=== PATIENT | female | born 1970 | race Caucasian/White ===

== ENCOUNTER 2016-11-27 00:05 | Inpatient (IN) | payer OTHER ==
[2016-11-27] VITALS (24 sets, daily range): BP systolic 90–160; BP diastolic 56–99; PULSE 70–116; RESP 14–20; TEMP 92.5–100.8; O2SAT 93–100
[~2016-11-27] VITALS: Ht 202.4 cm; Wt 77.1 kg
[~2016-11-27 00:05] MED LIST: DIAZ5 PO; LORC10TA PO
[2016-11-27] MEDS ORDERED: ceFAZolin 2 GM PREMIX 50 ML ONE (00:08)
[2016-11-27 00:35] LABS: AUTOMATED NEUTROPHIL # 3.7 TH/MM3 (1.8-7.7); BASOPHIL % 0.4 % (0.0-2.0); EOSINOPHIL # 0.1 TH/MM3 (0-0.4); HEMATOCRIT 29.9 % (35.0-46.0); HEMO FLAGS DIFF FINAL; LYMPH % 49.6 % (9.0-44.0); LYMPHOCYTE # 4.1 TH/MM3 (1.0-4.8); MEAN CELL VOLUME 91.7 FL (80.0-100.0); MEAN CORPUSCULAR HGB CONC 33.8 % (32.0-36.0); MONO % 5.4 % (0.0-8.0); NEUT % 43.6 % (16.0-70.0); PLATELET COUNT 174 TH/MM3 (150-450); RED BLOOD COUNT 3.26 MIL/MM3 (4.00-5.30); RED CELL DISTRIBUTION WIDTH 13.5 % (11.6-17.2); WHITE BLOOD COUNT 8.4 TH/MM3 (4.0-11.0)
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
[2016-11-27 00:39] LABS: I-STAT POTASSIUM 2.9 MMOL/L (3.5-4.9)
[2016-11-27 00:43] LABS: APTT (PATIENT) 24.2 SEC (24.3-30.1)
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
[2016-11-27] MEDS ORDERED: ETOMIDATE 20 MG/10 ML VIAL ONE (01:07)
[2016-11-27 01:22] LABS: BLOOD GAS BASE EXCESS -18.3 mmol/L (-2-2); BLOOD GAS CARBOXYHEMOGLOBIN 2.2 % (0-4); BLOOD GAS HCO3 10 mmol/L (22-26); BLOOD GAS METHEMOGLOBIN 1.5 % (0-2); BLOOD GAS O2 HGB SATURATION 96 % (90-100); BLOOD GAS OXYGEN CONTENT 9.4 Vol % (12.0-20.0); BLOOD GAS PCO2 42 mmHg (38-42); BLOOD GAS PO2 372 mmHg (61-120); BLOOD GAS TOTAL HGB 6.3 G/DL (12.0-16.0); CRITICAL VALUE YES; DRAW SITE ART LINE; OXYGEN DEVICE VENTILATOR; STAT YES; TEMP CORR TO 98.6; VENT SETTINGS O.R.
[2016-11-27 01:38] LABS: BLOOD GAS BASE EXCESS -0.6 mmol/L (-2-2); BLOOD GAS CARBOXYHEMOGLOBIN 2.3 % (0-4); BLOOD GAS HCO3 25 mmol/L (22-26); BLOOD GAS METHEMOGLOBIN 1.2 % (0-2); BLOOD GAS O2 HGB SATURATION 97 % (90-100); BLOOD GAS OXYGEN CONTENT 9.2 Vol % (12.0-20.0); BLOOD GAS PCO2 48 mmHg (38-42); BLOOD GAS PO2 440 mmHg (61-120); BLOOD GAS TOTAL HGB 5.9 G/DL (12.0-16.0); CRITICAL VALUE YES; DRAW SITE ART LINE; OXYGEN DEVICE VENTILATOR; STAT YES; TEMP CORR TO 98.6; VENT SETTINGS O.R.
[2016-11-27 01:38] LABS: REVIEW FLAG FINAL
[2016-11-27 01:39] LABS: HEMATOCRIT 17.5 % (35.0-46.0)
[2016-11-27 01:52] LABS: INTERNATIONAL NORMALIZED RATIO 1.4 RATIO; PROTHROMBIN TIME - PATIENT 15.9 SEC (9.8-11.6)
[2016-11-27 01:56] LABS: APTT (PATIENT) 117.4 SEC (24.3-30.1)
[2016-11-27] MEDS ORDERED: MIDAZOLAM HCL 2 MG/2 ML VIAL ONE (02:12)
[2016-11-27] MEDS ORDERED: fentaNYL CITRATE 250 MCG/5 ML AMP ONE (02:12)
[2016-11-27] MEDS ORDERED: SODIUM CHLORIDE 0.9% FLUSH 5 ML FLUSH IVF PRN (02:15)
[2016-11-27] MEDS ORDERED: Post-op Orders (for Pharmacy) MISC XX ONE (02:15)
[2016-11-27] MEDS ORDERED: NALOXONE HCL 0.4 MG/ML AMP IV PRN (02:15)
[2016-11-27] MEDS ORDERED: PANTOPRAZOLE SOD 40 MG DELAYED RELEASE TAB PO SCH (02:15)
--- NOTE | 2016-11-27 02:36 | RADRPT ---
EXAM DATE/TIME: 11/27/2016 02:14 [facility] COMPARISON: No previous studies available for comparison. INDICATIONS : E-T tube placement. MEDICAL HISTORY : None. SURGICAL HISTORY : None. ENCOUNTER: Subsequent ACUITY: 1 day PAIN SCORE: Non-responsive. LOCATION: Bilateral chest FINDINGS: A single view of the chest demonstrates the lungs to be symmetrically aerated without evidence of mas s, infiltrate or effusion. Endotracheal tube with tip 3 cm above the tova. The cardiomediastinal co ntours are unremarkable. Osseous structures are intact. CONCLUSION: 1. Adequate placement of endotracheal tube. Lopez White MD on November 27, 2016 at 2:32 Board Certified Radiologist. This report was verified electronically.
[2016-11-27 02:59] LABS: AUTOMATED NEUTROPHIL # 7.7 TH/MM3 (1.8-7.7); BASOPHIL % 0.1 % (0.0-2.0); EOSINOPHIL % 0.5 % (0.0-4.0); HEMATOCRIT 35.7 % (35.0-46.0); LYMPH % 9.4 % (9.0-44.0); LYMPHOCYTE # 0.8 TH/MM3 (1.0-4.8); MEAN CORPUSCULAR HEMOGLOBIN 30.5 PG (27.0-34.0); MEAN CORPUSCULAR HGB CONC 35.9 % (32.0-36.0); MONO % 2.9 % (0.0-8.0); NEUT % 87.1 % (16.0-70.0); PLATELET COUNT 51 TH/MM3 (150-450); RED CELL DISTRIBUTION WIDTH 13.6 % (11.6-17.2); WHITE BLOOD COUNT 8.8 TH/MM3 (4.0-11.0)
[2016-11-27 03:08] LABS: APTT (PATIENT) 36.6 SEC (24.3-30.1); INTERNATIONAL NORMALIZED RATIO 1.1 RATIO; PROTHROMBIN TIME - PATIENT 12.1 SEC (9.8-11.6)
[2016-11-27] MEDS ORDERED: fentaNYL DRIP 250 ML ONE (03:14)
[2016-11-27 03:20] LABS: BICARBONATE 20.7 MEQ/L (21.0-32.0); CALCIUM-PROTEIN CORRECTED 8.1 MG/DL (8.5-10.1); POTASSIUM 5.9 MEQ/L (3.5-5.1); TOTAL BILIRUBIN ADULT 0.5 MG/DL (0.2-1.0)
[2016-11-27 03:24] LABS: BLOOD GAS BASE EXCESS -6.8 mmol/L (-2-2); BLOOD GAS CARBOXYHEMOGLOBIN 1.4 % (0-4); BLOOD GAS HCO3 18 mmol/L (22-26); BLOOD GAS METHEMOGLOBIN 0.9 % (0-2); BLOOD GAS O2 HGB SATURATION 98 % (90-100); BLOOD GAS OXYGEN CONTENT 16.9 Vol % (12.0-20.0); BLOOD GAS PCO2 31 mmHg (38-42); BLOOD GAS PO2 390 mmHg (61-120); BLOOD GAS TOTAL HGB 11.6 G/DL (12.0-16.0); CRITICAL VALUE NO; DRAW SITE ART LINE; FIO2 100 %; NUMBER OF ARTERIAL PUNCTURES 0; OXYGEN DEVICE VENTILATOR; STAT YES; TEMP CORR TO 98.6; ULNAR PULSE PRESENT
[2016-11-27] MEDS: PIPERACIL-TAZO 3.375 GM PREMIX 50 ML IV SCH ×3 (03:26→19:51)
[2016-11-27 03:27] LABS: HEMO FLAGS AUTO DIFF
[2016-11-27 03:28] LABS: SCAN/DIFF AUTO DIFF CONFIRMED
[2016-11-27 04:09] LABS: MEAN CORPUSCULAR HGB CONC 36.4 % (32.0-36.0)
[2016-11-27] MEDS: SODIUM CHLOR 0.9% 1000 ML INJ 1,000 ML IV SCH ×4 (05:14→19:52)
[2016-11-27] MEDS: fentaNYL 2,500 MCG/NS 250 ML IV SCH ×2 (05:15→21:37)
[2016-11-27] MEDS: PROPOFOL 1000 MG/100 ML IV SCH ×5 (05:15→21:37)
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
[2016-11-27] MEDS ORDERED: niCARdipine 25 MG/NS 250 ML Vial2Bag or IV room IV SCH ×2 (05:30)
[2016-11-27] MEDS ORDERED: SODIUM CHLOR 0.9% 250 ML INJ 250 ML ONE (05:33)
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
[2016-11-27 05:56] LABS: BLOOD GAS CARBOXYHEMOGLOBIN 1.6 % (0-4); BLOOD GAS HCO3 23 mmol/L (22-26); BLOOD GAS O2 HGB SATURATION 97 % (90-100); BLOOD GAS OXYGEN CONTENT 15.9 Vol % (12.0-20.0); BLOOD GAS PCO2 26 mmHg (38-42); BLOOD GAS PO2 225 mmHg (61-120); BLOOD GAS TOTAL HGB 11.3 G/DL (12.0-16.0); TEMP CORR TO 98.6
[2016-11-27 05:58] LABS: CRITICAL VALUE YES; OXYGEN DEVICE VENTILATOR
[2016-11-27 05:59] LABS: DRAW SITE ART LINE; FIO2 80 %; NUMBER OF ARTERIAL PUNCTURES 0; STAT NO; ULNAR PULSE PRESENT
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
[2016-11-27 07:01] LABS: AUTOMATED NEUTROPHIL # 4.7 TH/MM3 (1.8-7.7); BASOPHIL % 0.1 % (0.0-2.0); EOSINOPHIL % 0.3 % (0.0-4.0); HEMATOCRIT 31.6 % (35.0-46.0); LYMPH % 21.7 % (9.0-44.0); LYMPHOCYTE # 1.4 TH/MM3 (1.0-4.8); MEAN CELL VOLUME 83.7 FL (80.0-100.0); MEAN CORPUSCULAR HEMOGLOBIN 30.5 PG (27.0-34.0); NEUT % 72.9 % (16.0-70.0); PLATELET COUNT 100 TH/MM3 (150-450); RED BLOOD COUNT 3.78 MIL/MM3 (4.00-5.30); RED CELL DISTRIBUTION WIDTH 14.2 % (11.6-17.2); WHITE BLOOD COUNT 6.4 TH/MM3 (4.0-11.0)
[2016-11-27 07:02] LABS: HEMO FLAGS AUTO DIFF
[2016-11-27 07:09] LABS: APTT (PATIENT) 27.8 SEC (24.3-30.1); INTERNATIONAL NORMALIZED RATIO 1.1 RATIO; PROTHROMBIN TIME - PATIENT 11.7 SEC (9.8-11.6)
[2016-11-27 07:36] LABS: CALCIUM-PROTEIN CORRECTED 8.1 MG/DL (8.5-10.1)
[2016-11-27 07:44] LABS: POTASSIUM 2.7 MEQ/L (3.5-5.1)
[2016-11-27] MEDS ORDERED: SODIUM CHLORIDE 0.9% FLUSH 5 ML FLUSH IV FLUSH PRN (07:45)
[2016-11-27] MEDS ORDERED: DEXTROSE 50% IN WATER 50 ML VIAL(D50) IV PUSH PRN (07:45)
[2016-11-27] MEDS ORDERED: MISCELLANEOUS NURSING INFORMATION XX SCH (07:45)
[2016-11-27] MEDS ORDERED: GLUCAGON 1 MG/ML VIAL OTHER PRN (07:45)
[2016-11-27] MEDS ORDERED: CHLORHEXIDINE GLUCONATE 2 % 1 PACK (2 CLOTHS) TOP PRN (07:45)
[2016-11-27] MEDS ORDERED: PANTOPRAZOLE SODIUM 40 MG VIAL IV PUSH SCH (08:00)
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
[2016-11-27 08:13] LABS: BLOOD GAS BASE EXCESS 4.3 mmol/L (-2-2); BLOOD GAS CARBOXYHEMOGLOBIN 1.7 % (0-4); BLOOD GAS HCO3 28 mmol/L (22-26); BLOOD GAS METHEMOGLOBIN 1.2 % (0-2); BLOOD GAS O2 HGB SATURATION 94 % (90-100); BLOOD GAS OXYGEN CONTENT 14.8 Vol % (12.0-20.0); BLOOD GAS PCO2 42 mmHg (38-42); BLOOD GAS PO2 81 mmHg (61-120); BLOOD GAS TOTAL HGB 11.2 G/DL (12.0-16.0); TEMP CORR TO 98.6
[2016-11-27 08:14] LABS: CRITICAL VALUE NO; DRAW SITE LT RADIAL; FIO2 40 %; OXYGEN DEVICE VENTILATOR; STAT NO; VENT SETTINGS PRVC550/14/PEEP5/1.0
[2016-11-27] MEDS: RESP: ALBUTEROL 2.5 MG/IPRATROPIUM 0.5 MG NEB (SCH) INH ×3 (08:19→20:12)
[2016-11-27 08:37] LABS: BANDS 20 % (0-6); EOSINOPHILS 1 % (0-4); NEUTROPHIL # MANUAL DIFF 4.7 TH/MM3 (1.8-7.7); PLATELET ESTIMATE SMEAR LOW (NORMAL); PLATELET MORPHOLOGY NORMAL (NORMAL); POLYS (SEG NEUTROPHILS) 53 % (16-70); SCAN/DIFF FINAL DIFF MANUAL; WBC DIFF SAMPLE 100
[2016-11-27] MEDS ORDERED: POTASSIUM PHOSPHATE MONOBASIC 500 MG TAB PO/TUBE PRN (08:45)
[2016-11-27] MEDS ORDERED: POTASSIUM CL 40 MEQ/30 ML LIQ UDC PO/TUBE PRN (08:45)
[2016-11-27] MEDS ORDERED: SODIUM PHOSPHATE INJ 30 MMOL in SODIUM CHLOR 0.9% 250 ML INJ 240 ML IV PRN (08:45)
[2016-11-27] MEDS ORDERED: POTASSIUM PHOSPHATE INJ 30 MMOL in SODIUM CHLOR 0.9% 250 ML INJ 250 ML IV PRN (08:45)
[2016-11-27] MEDS ORDERED: MAGNESIUM SULFATE INJ 4 GM in SODIUM CHLORIDE 0.9% INJ 92 ML IV PRN (08:45)
[2016-11-27] MEDS ORDERED: MAGNESIUM OXIDE 400 MG TAB PO PRN (08:45)
[2016-11-27] MEDS ORDERED: POTASSIUM PHOSPHATE MONOBASIC 500 MG TAB PO PRN (08:45)
[2016-11-27] MEDS ORDERED: SODIUM CHLORIDE 0.9% FLUSH 5 ML FLUSH IVF SCH (09:00)
[2016-11-27] MEDS: POTASSIUM CHLOR 40 MEQ PREMIX 100 ML IV PRN ×3 (09:34→19:52)
[2016-11-27] MEDS: PANTOPRAZOLE SODIUM 40 MG VIAL IV SCH (09:37)
[2016-11-27] MEDS: SODIUM CHLORIDE 0.9% FLUSH 5 ML FLUSH IV FLUSH SCH ×2 (09:38→19:52)
[2016-11-27 09:45] LABS: MEAN CORPUSCULAR HGB CONC 36.4 % (32.0-36.0)
[2016-11-27 09:46] LABS: MAGNESIUM 1.5 MG/DL (1.5-2.5)
[2016-11-27] MEDS: MULTIVITAMIN INJ 10 ML, THIAMINE INJ 100 MG, FOLIC ACID INJ 1 MG in SODIUM CHLORID 0.9%... IV SCH (10:53)
[2016-11-27] MEDS: MAGNESIUM SULFATE INJ 2 GM in SODIUM CHLORIDE 0.9% INJ 96 ML IV PRN (10:53)
[2016-11-27] MEDS: ARTIFICIAL TEARS OPTH SOLN 15 ML BTL EACH EYE SCH ×3 (10:54→17:06)
[2016-11-27] MEDS ORDERED: EPINEPHrine HCL (1:10,000) 1 MG/10 ML SYRINGE ONE (11:27)
[2016-11-27] MEDS ORDERED: LIDOCAINE HCL 2% 100 MG/5 ML SYRINGE ONE (11:27)
[2016-11-27] MEDS ORDERED: ATROPINE SULFATE 1 MG/10 ML SYRINGE ONE (11:28)
[2016-11-27] MEDS: INSULIN NovoLIN REGULAR SUPPLEMENTAL SCALE SQ SCH ×2 (12:00→18:00)
[2016-11-27] MEDS ORDERED: IOHEXOL 350 MG/ML 10 ML VIAL (for RAD DIAG) IV ONE (12:31)
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
[2016-11-27 13:03] LABS: HEMATOCRIT 31.3 % (35.0-46.0); MEAN CELL VOLUME 83.3 FL (80.0-100.0); MEAN CORPUSCULAR HEMOGLOBIN 30.4 PG (27.0-34.0); PLATELET COUNT 86 TH/MM3 (150-450); RED BLOOD COUNT 3.75 MIL/MM3 (4.00-5.30); RED CELL DISTRIBUTION WIDTH 14.4 % (11.6-17.2); WHITE BLOOD COUNT 5.5 TH/MM3 (4.0-11.0)
[2016-11-27 13:05] LABS: REVIEW FLAG FINAL
[2016-11-27 13:08] LABS: APTT (PATIENT) 29.2 SEC (24.3-30.1); INTERNATIONAL NORMALIZED RATIO 1.1 RATIO
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
[2016-11-27 13:39] LABS: BICARBONATE 28.9 MEQ/L (21.0-32.0); MAGNESIUM 1.8 MG/DL (1.5-2.5); POTASSIUM 3.6 MEQ/L (3.5-5.1)
[2016-11-27 14:02] LABS: CALCIUM-PROTEIN CORRECTED 7.3 MG/DL (8.5-10.1)
[2016-11-27] MEDS ORDERED: ALBUMIN HUMAN 5% 25 GM/500 ML BOTTLE IV ONE ×2 (14:45→21:30)
[2016-11-27] MEDS ORDERED: NOREPINEPHRINE-DEXTROSE DRIP 250 ML IV ONE (15:37)
[2016-11-27] MEDS ORDERED: TERBUTALINE INJ 1 MG/ML AMP SQ PRN ×2 (15:45→17:45)
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
[2016-11-27] MEDS ORDERED: SODIUM CHLOR 0.9% 1000 ML INJ 1,000 ML IV ONE ×2 (16:45)
[2016-11-27] MEDS ORDERED: CALCIUM GLUCONATE INJ 2 GM in DEXTROSE 5% IN WATER 100ML INJ 100 ML IV ONE ×2 (17:00)
[2016-11-27] MEDS: NOREPINEPHRINE-DEXTROSE DRIP 250 ML IV SCH ×2 (17:25→21:59)
[2016-11-27] MEDS ORDERED: PHENYLEPHRINE HCL 10 MG/ML VIAL ONE (17:35)
[2016-11-27 17:42] LABS: MEAN CELL VOLUME 83.7 FL (80.0-100.0); MEAN CORPUSCULAR HEMOGLOBIN 29.6 PG (27.0-34.0); MEAN CORPUSCULAR HGB CONC 35.4 % (32.0-36.0); PLATELET COUNT 80 TH/MM3 (150-450); RED BLOOD COUNT 3.58 MIL/MM3 (4.00-5.30); RED CELL DISTRIBUTION WIDTH 14.4 % (11.6-17.2); WHITE BLOOD COUNT 11.4 TH/MM3 (4.0-11.0)
[2016-11-27 17:43] LABS: REVIEW FLAG FINAL
[2016-11-27 18:04] LABS: BLOOD GAS BASE EXCESS -3.8 mmol/L (-2-2); BLOOD GAS CARBOXYHEMOGLOBIN 1.6 % (0-4); BLOOD GAS HCO3 22 mmol/L (22-26); BLOOD GAS METHEMOGLOBIN 1.1 % (0-2); BLOOD GAS O2 HGB SATURATION 91 % (90-100); BLOOD GAS OXYGEN CONTENT 13.6 Vol % (12.0-20.0); BLOOD GAS PCO2 46 mmHg (38-42); BLOOD GAS PO2 78 mmHg (61-120); BLOOD GAS TOTAL HGB 10.5 G/DL (12.0-16.0); TEMP CORR TO 98.6
[2016-11-27 18:05] LABS: CRITICAL VALUE NO; DRAW SITE ART LINE; FIO2 40 %; OXYGEN DEVICE VENTILATOR; STAT NO; VENT SETTINGS PRVC550/14PEEP51.OIT
[2016-11-27 18:22] LABS: BICARBONATE 26.3 MEQ/L (21.0-32.0)
[2016-11-27 18:37] LABS: CALCIUM-PROTEIN CORRECTED 7.6 MG/DL (8.5-10.1)
[2016-11-27 18:40] LABS: POTASSIUM 2.9 MEQ/L (3.5-5.1)
[2016-11-27] MEDS ORDERED: SODIUM BICARBONATE 8.4% INJ 50 MEQ/50 ML SYR ONE (18:49)
[2016-11-27] MEDS ORDERED: SODIUM BICARBONATE 8.4% INJ 50 MEQ/50 ML SYR IV PUSH ONE (20:00)
[2016-11-27] MEDS: PHENYLEPHRINE INJ 40 MG in DEXTROSE 5% IN WATE 500 ML INJ 496 ML IV SCH ×2 (21:36)
[2016-11-28] VITALS (20 sets, daily range): BP systolic 92–116; BP diastolic 52–65; PULSE 88–114; RESP 14–18; TEMP 99.7–100.8; O2SAT 91–100
[2016-11-28] MEDS ORDERED: PHENYLEPHRINE HCL 10 MG/ML VIAL ONE ×3 (01:37→01:38)
[2016-11-28] MEDS: PHENYLEPHRINE INJ 40 MG in DEXTROSE 5% IN WATE 500 ML INJ 496 ML IV SCH ×10 (02:26→23:11)
[2016-11-28] MEDS: RESP: ALBUTEROL 2.5 MG/IPRATROPIUM 0.5 MG NEB (SCH) INH ×4 (03:18→20:35)
[2016-11-28] MEDS: CHLORHEXIDINE GLUCONATE 2 % 1 PACK (2 CLOTHS) TOP SCH (04:00)
[2016-11-28 04:13] LABS: AUTOMATED NEUTROPHIL # 9.9 TH/MM3 (1.8-7.7); BASOPHIL % 0.2 % (0.0-2.0); EOSINOPHIL # 0.1 TH/MM3 (0-0.4); EOSINOPHIL % 0.7 % (0.0-4.0); HEMATOCRIT 30.7 % (35.0-46.0); LYMPH % 17.5 % (9.0-44.0); LYMPHOCYTE # 2.3 TH/MM3 (1.0-4.8); MEAN CELL VOLUME 85.3 FL (80.0-100.0); MEAN CORPUSCULAR HEMOGLOBIN 29.6 PG (27.0-34.0); MEAN CORPUSCULAR HGB CONC 34.8 % (32.0-36.0); MONO % 5.4 % (0.0-8.0); NEUT % 76.2 % (16.0-70.0); PLATELET COUNT 81 TH/MM3 (150-450); WHITE BLOOD COUNT 12.9 TH/MM3 (4.0-11.0)
[2016-11-28 04:15] LABS: HEMO FLAGS AUTO DIFF
[2016-11-28 04:32] LABS: INTERNATIONAL NORMALIZED RATIO 1.2 RATIO; PROTHROMBIN TIME - PATIENT 12.9 SEC (9.8-11.6)
[2016-11-28] MEDS: PIPERACIL-TAZO 3.375 GM PREMIX 50 ML IV SCH ×3 (04:56→20:40)
[2016-11-28] MEDS: PROPOFOL 1000 MG/100 ML IV SCH ×3 (04:57→20:39)
[2016-11-28] MEDS: SODIUM CHLOR 0.9% 1000 ML INJ 1,000 ML IV SCH ×3 (04:57→20:41)
[2016-11-28 04:59] LABS: BICARBONATE 23.1 MEQ/L (21.0-32.0); CALCIUM-PROTEIN CORRECTED 7.9 MG/DL (8.5-10.1); MAGNESIUM 1.4 MG/DL (1.5-2.5); POTASSIUM 4.2 MEQ/L (3.5-5.1); TOTAL BILIRUBIN ADULT 1.4 MG/DL (0.2-1.0)
[2016-11-28 05:00] LABS: BANDS 44 % (0-6); BASOPHILS 1 % (0-2); CORRECTED NUCLEATED RBC 1 /100 WBC (0-0); NEUTROPHIL # MANUAL DIFF 10.3 TH/MM3 (1.8-7.7); POLYS (SEG NEUTROPHILS) 35 % (16-70); PROMYELOCYTES 1 % (0-0); WBC DIFF SAMPLE 100
[2016-11-28 05:01] LABS: OVALOCYTES 1+ (NORMAL); PLATELET ESTIMATE SMEAR LOW (NORMAL); PLATELET MORPHOLOGY NORMAL (NORMAL); SCAN/DIFF FINAL DIFF MANUAL
[2016-11-28 05:08] LABS: BLOOD GAS BASE EXCESS -5.6 mmol/L (-2-2); BLOOD GAS CARBOXYHEMOGLOBIN 1.3 % (0-4); BLOOD GAS HCO3 20 mmol/L (22-26); BLOOD GAS O2 HGB SATURATION 89 % (90-100); BLOOD GAS OXYGEN CONTENT 13.5 Vol % (12.0-20.0); BLOOD GAS PCO2 48 mmHg (38-42); BLOOD GAS PO2 65 mmHg (61-120); BLOOD GAS TOTAL HGB 10.7 G/DL (12.0-16.0); TEMP CORR TO 98.6
[2016-11-28 05:11] LABS: CRITICAL VALUE YES; OXYGEN DEVICE VENTILATOR
[2016-11-28 05:12] LABS: DRAW SITE ART LINE; FIO2 70 %; STAT NO
[2016-11-28] MEDS: INSULIN NovoLIN REGULAR SUPPLEMENTAL SCALE SQ SCH ×2 (06:00)
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
[2016-11-28] MEDS: SODIUM CHLORIDE 0.9% FLUSH 5 ML FLUSH IV FLUSH SCH ×2 (09:00→20:41)
[2016-11-28] MEDS: ARTIFICIAL TEARS OPTH SOLN 15 ML BTL EACH EYE SCH ×3 (09:00→18:00)
[2016-11-28 09:10] LABS: BLOOD GAS BASE EXCESS -6.1 mmol/L (-2-2); BLOOD GAS HCO3 20 mmol/L (22-26); BLOOD GAS METHEMOGLOBIN 0.9 % (0-2); BLOOD GAS O2 HGB SATURATION 87 % (90-100); BLOOD GAS OXYGEN CONTENT 13.2 Vol % (12.0-20.0); BLOOD GAS PCO2 48 mmHg (38-42); BLOOD GAS PO2 61 mmHg (61-120); BLOOD GAS TOTAL HGB 10.8 G/DL (12.0-16.0); TEMP CORR TO 98.6
[2016-11-28 09:11] LABS: CRITICAL VALUE YES; OXYGEN DEVICE VENTILATOR
[2016-11-28 09:12] LABS: DRAW SITE ART LINE; FIO2 100 %; STAT NO; VENT SETTINGS PRVC/AC/VT550/P8
[2016-11-28] MEDS: MULTIVITAMIN INJ 10 ML, THIAMINE INJ 100 MG, FOLIC ACID INJ 1 MG in SODIUM CHLORID 0.9%... IV SCH (09:18)
[2016-11-28] MEDS: PANTOPRAZOLE SODIUM 40 MG VIAL IV SCH (09:18)
[2016-11-28] MEDS ORDERED: LACTATED RINGER'S 1000 ML INJ 1,000 ML IV ONE (09:42)
[2016-11-28] MEDS ORDERED: CALCIUM GLUCONATE INJ 1 GM in SODIUM CHLORIDE 0.9% INJ 100 ML IV ONE (10:00)
[2016-11-28 11:33] LABS: BLOOD GAS BASE EXCESS -5.7 mmol/L (-2-2); BLOOD GAS CARBOXYHEMOGLOBIN 1.1 % (0-4); BLOOD GAS HCO3 20 mmol/L (22-26); BLOOD GAS METHEMOGLOBIN 0.8 % (0-2); BLOOD GAS O2 HGB SATURATION 93 % (90-100); BLOOD GAS OXYGEN CONTENT 13.8 Vol % (12.0-20.0); BLOOD GAS PCO2 43 mmHg (38-42); BLOOD GAS PO2 75 mmHg (61-120); BLOOD GAS TOTAL HGB 10.5 G/DL (12.0-16.0); CRITICAL VALUE YES; OXYGEN DEVICE VENTILATOR; TEMP CORR TO 98.6
[2016-11-28 11:34] LABS: DRAW SITE ART LINE; FIO2 80 %; STAT YES; VENT SETTINGS PRVC/AC/VT550/R18/P1
[2016-11-28] MEDS ORDERED: FAMOTIDINE 20 MG/2 ML VIAL ONE (12:32)
[2016-11-28] MEDS: NOREPINEPHRINE-DEXTROSE DRIP 250 ML IV SCH (12:32)
[2016-11-28] MEDS ORDERED: ACETAMINOPHEN 1000 MG/100 ML VIAL IV ONE (12:32)
[2016-11-28] MEDS ORDERED: MIDAZOLAM HCL 2 MG/2 ML VIAL ONE (12:33)
[2016-11-28] MEDS ORDERED: fentaNYL CITRATE 250 MCG/5 ML AMP ONE (12:33)
[2016-11-28] MEDS ORDERED: METOCLOPRAMIDE HCL 10 MG/2 ML VIAL ONE (12:47)
[2016-11-28] MEDS ORDERED: EPINEPHrine HCL (1:10,000) 1 MG/10 ML SYRINGE ONE (13:09)
[2016-11-28] MEDS ORDERED: ATROPINE SULFATE 1 MG/10 ML SYRINGE ONE (13:10)
[2016-11-28] MEDS ORDERED: LIDOCAINE HCL 2% 100 MG/5 ML SYRINGE ONE (13:10)
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
--- NOTE | 2016-11-28 16:23 | OTSOAPIP ---
TIME SESSION COMPLETED: IN PM TREATMENT TIME: 0 MINS. CHART REVIEWED. ATTEMPTED TO SEE FOR EVALUATION, HOWEVER OFF FLOOR FOR SURGERY. WILL FOLLOW NEXT DAY. Therapist: JAYE GONSALES OT/L Signature on file
[2016-11-28] MEDS: fentaNYL 2,500 MCG/NS 250 ML IV SCH (20:39)
[2016-11-29] VITALS (21 sets, daily range): BP systolic 102–128; BP diastolic 50–68; PULSE 86–103; RESP 18–20; TEMP 98.6–99.4; O2SAT 96–100
[2016-11-29] MEDS: RESP: ALBUTEROL 2.5 MG/IPRATROPIUM 0.5 MG NEB (SCH) INH ×4 (03:14→19:43)
[2016-11-29] MEDS: PROPOFOL 1000 MG/100 ML IV SCH (03:59)
[2016-11-29] MEDS: PIPERACIL-TAZO 3.375 GM PREMIX 50 ML IV SCH ×3 (04:00→20:19)
[2016-11-29] MEDS: PHENYLEPHRINE INJ 40 MG in DEXTROSE 5% IN WATE 500 ML INJ 496 ML IV SCH ×2 (04:00)
[2016-11-29] MEDS: CHLORHEXIDINE GLUCONATE 2 % 1 PACK (2 CLOTHS) TOP SCH (04:00)
[2016-11-29 04:50] LABS: BLOOD GAS BASE EXCESS -5.7 mmol/L (-2-2); BLOOD GAS HCO3 19 mmol/L (22-26); BLOOD GAS O2 HGB SATURATION 97 % (90-100); BLOOD GAS OXYGEN CONTENT 14.2 Vol % (12.0-20.0); BLOOD GAS PCO2 38 mmHg (38-42); BLOOD GAS PO2 129 mmHg (61-120); BLOOD GAS TOTAL HGB 10.2 G/DL (12.0-16.0); TEMP CORR TO 98.6
[2016-11-29 04:51] LABS: CRITICAL VALUE NO; FIO2 50 %; OXYGEN DEVICE VENTILATOR
[2016-11-29 04:52] LABS: DRAW SITE ART LINE; STAT NO
[2016-11-29 05:19] LABS: HEMATOCRIT 30.3 % (35.0-46.0); MEAN CELL VOLUME 86.1 FL (80.0-100.0); MEAN CORPUSCULAR HEMOGLOBIN 29.6 PG (27.0-34.0); MEAN CORPUSCULAR HGB CONC 34.4 % (32.0-36.0); PLATELET COUNT 68 TH/MM3 (150-450); RED BLOOD COUNT 3.52 MIL/MM3 (4.00-5.30); RED CELL DISTRIBUTION WIDTH 15.5 % (11.6-17.2); WHITE BLOOD COUNT 17.1 TH/MM3 (4.0-11.0)
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
[2016-11-29 05:44] LABS: BICARBONATE 20.8 MEQ/L (21.0-32.0); MAGNESIUM 1.6 MG/DL (1.5-2.5); POTASSIUM 3.7 MEQ/L (3.5-5.1)
[2016-11-29] MEDS: INSULIN NovoLIN REGULAR SUPPLEMENTAL SCALE SQ SCH ×3 (06:00→18:00)
[2016-11-29 06:17] LABS: CALCIUM-PROTEIN CORRECTED 8.8 MG/DL (8.5-10.1)
[2016-11-29 06:32] LABS: REVIEW FLAG FINAL
[2016-11-29] MEDS: SODIUM CHLOR 0.9% 1000 ML INJ 1,000 ML IV SCH (08:25)
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
[2016-11-29] MEDS: PANTOPRAZOLE SODIUM 40 MG VIAL IV SCH (08:42)
[2016-11-29] MEDS: DOCUSATE SODIUM 100 MG CAP PO SCH ×2 (08:42→20:20)
[2016-11-29] MEDS: MULTIVITAMIN INJ 10 ML, THIAMINE INJ 100 MG, FOLIC ACID INJ 1 MG in SODIUM CHLORID 0.9%... IV SCH (09:00)
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
[2016-11-29] MEDS ORDERED: PHENYLEPHRINE HCL 10 MG/ML VIAL ONE (16:32)
[2016-11-29] MEDS: ARTIFICIAL TEARS OPTH SOLN 15 ML BTL EACH EYE SCH (18:00)
[2016-11-29] MEDS: SODIUM CHLORIDE 0.9% FLUSH 5 ML FLUSH IV FLUSH SCH (20:20)
[2016-11-29] MEDS: PHENYLEPHRINE HCL 160 MG/D5W 484 ML ADMIX IV SCH ×2 (21:14)
[2016-11-29] MEDS: fentaNYL 2,500 MCG/NS 250 ML IV SCH (22:46)
[2016-11-30] VITALS (19 sets, daily range): BP systolic 94–122; BP diastolic 42–66; PULSE 77–92; RESP 18; TEMP 98.2–100; O2SAT 92–100
[2016-11-30] MEDS: CHLORHEXIDINE GLUCONATE 2 % 1 PACK (2 CLOTHS) TOP SCH (03:29)
[2016-11-30] MEDS: RESP: ALBUTEROL 2.5 MG/IPRATROPIUM 0.5 MG NEB (SCH) INH ×4 (03:33→21:21)
[2016-11-30] MEDS: PIPERACIL-TAZO 3.375 GM PREMIX 50 ML IV SCH ×2 (04:29→13:23)
[2016-11-30] MEDS: PROPOFOL 1000 MG/100 ML IV SCH ×4 (04:29→21:38)
[2016-11-30] MEDS: INSULIN NovoLIN REGULAR SUPPLEMENTAL SCALE SQ SCH ×4 (06:00→18:00)
[2016-11-30] MEDS: SODIUM CHLOR 0.9% 1000 ML INJ 1,000 ML IV SCH (06:45)
[2016-11-30] MEDS: PANTOPRAZOLE SODIUM 40 MG VIAL IV SCH (08:45)
[2016-11-30] MEDS: ARTIFICIAL TEARS OPTH SOLN 15 ML BTL EACH EYE SCH ×3 (08:46→18:00)
[2016-11-30] MEDS: MULTIVITAMIN INJ 10 ML, THIAMINE INJ 100 MG, FOLIC ACID INJ 1 MG in SODIUM CHLORID 0.9%... IV SCH (08:46)
[2016-11-30 08:47] LABS: BLOOD GAS BASE EXCESS -3.6 mmol/L (-2-2); BLOOD GAS CARBOXYHEMOGLOBIN 1.6 % (0-4); BLOOD GAS HCO3 21 mmol/L (22-26); BLOOD GAS METHEMOGLOBIN 0.9 % (0-2); BLOOD GAS O2 HGB SATURATION 95 % (90-100); BLOOD GAS PCO2 34 mmHg (38-42); BLOOD GAS PO2 93 mmHg (61-120); BLOOD GAS TOTAL HGB 11.9 G/DL (12.0-16.0); CRITICAL VALUE NO; DRAW SITE ART LINE; FIO2 40 %; OXYGEN DEVICE VENTILATOR; STAT NO; TEMP CORR TO 98.6; ULNAR PULSE PRESENT; VENT SETTINGS PRVC/AC
[2016-11-30] MEDS: SODIUM CHLORIDE 0.9% FLUSH 5 ML FLUSH IV FLUSH SCH ×2 (08:47→21:11)
[2016-11-30] MEDS: DOCUSATE SODIUM 100 MG CAP PO SCH ×2 (08:47→21:12)
[2016-11-30 09:17] LABS: HEMATOCRIT 28.9 % (35.0-46.0); MEAN CELL VOLUME 85.5 FL (80.0-100.0); MEAN CORPUSCULAR HEMOGLOBIN 29.4 PG (27.0-34.0); MEAN CORPUSCULAR HGB CONC 34.3 % (32.0-36.0); PLATELET COUNT 81 TH/MM3 (150-450); RED BLOOD COUNT 3.38 MIL/MM3 (4.00-5.30); RED CELL DISTRIBUTION WIDTH 15.2 % (11.6-17.2); WHITE BLOOD COUNT 20.6 TH/MM3 (4.0-11.0)
[2016-11-30 09:22] LABS: REVIEW FLAG FINAL
[2016-11-30 09:41] LABS: BICARBONATE 22.1 MEQ/L (21.0-32.0); MAGNESIUM 1.8 MG/DL (1.5-2.5)
[2016-11-30 10:19] LABS: POTASSIUM 2.9 MEQ/L (3.5-5.1)
[2016-11-30] MEDS: ENOXAPARIN SODIUM 40 MG/0.4 ML SYRINGE SQ SCH (10:27)
[2016-11-30] MEDS: POTASSIUM CHLOR 40 MEQ PREMIX 100 ML IV PRN ×2 (10:27→10:28)
[2016-11-30] MEDS: PHENYLEPHRINE HCL 160 MG/D5W 484 ML ADMIX IV SCH ×2 (15:10)
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
[2016-11-30] MEDS ORDERED: methylPREDNISolone SO SUCC INJ 500 MG in DEXTROSE 5% IN WATER 100ML INJ 100 ML IV ONE ×2 (16:00)
[2016-11-30] MEDS ORDERED: FAT EMULSION 20% INJ 250 ML (Daily over 8 hours) IV-CENTRAL SCH (20:00)
[2016-11-30] MEDS: CLINIMIX E 5/25 2000 mL- >42 mls/hr IV-CENTRAL SCH ×3 (20:16)
[2016-11-30] MEDS: fentaNYL 2,500 MCG/NS 250 ML IV SCH (23:59)
[2016-12-01] VITALS (19 sets, daily range): BP systolic 98–116; BP diastolic 52–60; PULSE 64–86; RESP 15–18; TEMP 97.2–99; O2SAT 95–100
[2016-12-01] MEDS: INSULIN NovoLIN REGULAR SUPPLEMENTAL SCALE SQ SCH ×4 (00:41→18:00)
[2016-12-01] MEDS: POTASSIUM CHLOR 40 MEQ PREMIX 100 ML IV PRN ×3 (01:12→12:46)
[2016-12-01] MEDS: RESP: ALBUTEROL 2.5 MG/IPRATROPIUM 0.5 MG NEB (SCH) INH (03:29)
[2016-12-01] MEDS: CHLORHEXIDINE GLUCONATE 2 % 1 PACK (2 CLOTHS) TOP SCH (04:21)
[2016-12-01 05:01] LABS: HEMATOCRIT 28.7 % (35.0-46.0); MEAN CELL VOLUME 87.5 FL (80.0-100.0); MEAN CORPUSCULAR HEMOGLOBIN 29.7 PG (27.0-34.0); MEAN CORPUSCULAR HGB CONC 33.9 % (32.0-36.0); PLATELET COUNT 97 TH/MM3 (150-450); RED BLOOD COUNT 3.28 MIL/MM3 (4.00-5.30); RED CELL DISTRIBUTION WIDTH 15.2 % (11.6-17.2)
[2016-12-01 05:18] LABS: BICARBONATE 23.7 MEQ/L (21.0-32.0); REVIEW FLAG FINAL
[2016-12-01 05:24] LABS: BLOOD GAS CARBOXYHEMOGLOBIN 1.3 % (0-4); BLOOD GAS HCO3 22 mmol/L (22-26); BLOOD GAS METHEMOGLOBIN 0.6 % (0-2); BLOOD GAS O2 HGB SATURATION 95 % (90-100); BLOOD GAS OXYGEN CONTENT 17.1 Vol % (12.0-20.0); BLOOD GAS PCO2 43 mmHg (38-42); BLOOD GAS PO2 99 mmHg (61-120); BLOOD GAS TOTAL HGB 12.6 G/DL (12.0-16.0); TEMP CORR TO 98.6
[2016-12-01 05:25] LABS: CRITICAL VALUE NO; DRAW SITE ART LINE; FIO2 55 %; OXYGEN DEVICE VENTILATOR; STAT NO; VENT SETTINGS PRVC/AC
[2016-12-01 05:28] LABS: POTASSIUM 2.9 MEQ/L (3.5-5.1)
--- NOTE | 2016-12-01 06:25 | RADRPT ---
EXAM DATE/TIME: 12/01/2016 05:39 [facility] COMPARISON: CHEST SINGLE AP, November 29, 2016, 4:06. INDICATIONS : Evaluate after respiratory failure. MEDICAL HISTORY : None. SURGICAL HISTORY : None. ENCOUNTER: Subsequent ACUITY: 4 - 6 days PAIN SCORE: Non-responsive. LOCATION: Bilateral chest FINDINGS: The cardiac silhouette is enlarged in transverse diameter. There is left lower lobe atelectasis versu s pneumonia. The right lung is free of acute parenchymal opacity. A nasogastric tube is in place with its tip in the stomach. CONCLUSION: 1. Left lower lobe atelectasis versus pneumonia. This is new when compared with the prior exam. Matt Horne MD on December 01, 2016 at 6:23 Board Certified Radiologist. This report was verified electronically.
[2016-12-01] MEDS: SODIUM CHLOR 0.9% 1000 ML INJ 1,000 ML IV SCH (06:46)
[2016-12-01] MEDS: ARTIFICIAL TEARS OPTH SOLN 15 ML BTL EACH EYE SCH ×3 (09:00→18:00)
[2016-12-01] MEDS: SODIUM CHLORIDE 0.9% FLUSH 5 ML FLUSH IV FLUSH SCH ×2 (09:00→21:00)
[2016-12-01] MEDS: DOCUSATE SODIUM 100 MG CAP PO SCH ×2 (09:00→21:00)
[2016-12-01] MEDS: PANTOPRAZOLE SODIUM 40 MG VIAL IV SCH (09:01)
[2016-12-01] MEDS: RESP: ALBUTEROL 2.5 MG/IPRATROPIUM 0.5 MG NEB (PRN) INH ×2 (10:21→21:10)
[2016-12-01] MEDS ORDERED: FUROSEMIDE 40 MG/4 ML VIAL IV PUSH ONE (11:00)
[2016-12-01] MEDS: ENOXAPARIN SODIUM 40 MG/0.4 ML SYRINGE SQ SCH (11:08)
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
[2016-12-01] MEDS: CLINIMIX E 5/25 2000 mL- >42 mls/hr IV-CENTRAL SCH ×3 (19:54)
[2016-12-01] MEDS: PROPOFOL 1000 MG/100 ML IV SCH (23:25)
[2016-12-01] MEDS: fentaNYL 2,500 MCG/NS 250 ML IV SCH (23:25)
[2016-12-02] VITALS (19 sets, daily range): BP systolic 102–144; BP diastolic 54–78; PULSE 55–87; RESP 18; TEMP 98.6–100.2; O2SAT 96–100
[2016-12-02] MEDS: DOCUSATE SODIUM 100 MG/10 ML UDC OG SCH ×3 (00:25→19:53)
[2016-12-02] MEDS: PROPOFOL 1000 MG/100 ML IV SCH ×4 (03:14→22:10)
[2016-12-02] MEDS: CHLORHEXIDINE GLUCONATE 2 % 1 PACK (2 CLOTHS) TOP SCH (04:00)
[2016-12-02] MEDS: RESP: ALBUTEROL 2.5 MG/IPRATROPIUM 0.5 MG NEB (PRN) INH (04:01)
[2016-12-02 05:16] LABS: HEMATOCRIT 28.3 % (35.0-46.0); MEAN CELL VOLUME 86.7 FL (80.0-100.0); MEAN CORPUSCULAR HEMOGLOBIN 28.4 PG (27.0-34.0); MEAN CORPUSCULAR HGB CONC 32.8 % (32.0-36.0); PLATELET COUNT 150 TH/MM3 (150-450); RED BLOOD COUNT 3.26 MIL/MM3 (4.00-5.30); RED CELL DISTRIBUTION WIDTH 15.4 % (11.6-17.2); REVIEW FLAG FINAL; WHITE BLOOD COUNT 24.1 TH/MM3 (4.0-11.0)
[2016-12-02 05:45] LABS: BICARBONATE 26.6 MEQ/L (21.0-32.0); MAGNESIUM 1.8 MG/DL (1.5-2.5); POTASSIUM 3.5 MEQ/L (3.5-5.1)
[2016-12-02] MEDS: INSULIN NovoLIN REGULAR SUPPLEMENTAL SCALE SQ SCH ×4 (06:00→17:22)
[2016-12-02] MEDS: POTASSIUM CHLOR 40 MEQ PREMIX 100 ML IV PRN (06:15)
[2016-12-02] MEDS: SODIUM CHLORIDE 0.9% FLUSH 5 ML FLUSH IV FLUSH SCH ×2 (08:36→19:53)
[2016-12-02] MEDS: DOCUSATE SODIUM 100 MG CAP PO SCH (08:36)
[2016-12-02] MEDS: ARTIFICIAL TEARS OPTH SOLN 15 ML BTL EACH EYE SCH ×3 (08:36→17:23)
[2016-12-02] MEDS: PANTOPRAZOLE SODIUM 40 MG VIAL IV SCH (08:36)
[2016-12-02] MEDS: ENOXAPARIN SODIUM 40 MG/0.4 ML SYRINGE SQ SCH (11:00)
[2016-12-02] MEDS ORDERED: PIPERACIL-TAZO 3.375 GM PREMIX 50 ML IV ONE (12:15)
[2016-12-02] MEDS ORDERED: PHENYLEPH/NS 1000 MCG/10 ML SYR IV ONE (12:24)
[2016-12-02] MEDS ORDERED: ONDANSETRON HCL 4 MG/2 ML VIAL IV PUSH ONE (12:24)
[2016-12-02] MEDS ORDERED: MIDAZOLAM HCL 2 MG/2 ML VIAL ONE (13:25)
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
[2016-12-02] MEDS: PIPERACIL-TAZO 3.375 GM PREMIX 50 ML IV SCH (17:26)
[2016-12-02] MEDS: CLINIMIX E 5/25 2000 mL- >42 mls/hr IV-CENTRAL SCH ×3 (19:51)
[2016-12-03] VITALS (22 sets, daily range): BP systolic 88–134; BP diastolic 44–84; PULSE 78–106; RESP 13–18; TEMP 98.8–101.3; O2SAT 93–100
[2016-12-03] MEDS: PIPERACIL-TAZO 3.375 GM PREMIX 50 ML IV SCH ×3 (00:59→18:28)
[2016-12-03] MEDS: ACETAMINOPHEN 1000 MG/100 ML VIAL IV PRN ×2 (02:26→11:36)
[2016-12-03] MEDS: CHLORHEXIDINE GLUCONATE 2 % 1 PACK (2 CLOTHS) TOP SCH (04:00)
[2016-12-03 04:13] LABS: BLOOD GAS CARBOXYHEMOGLOBIN 1.9 % (0-4); BLOOD GAS HCO3 25 mmol/L (22-26); BLOOD GAS METHEMOGLOBIN 0.8 % (0-2); BLOOD GAS O2 HGB SATURATION 94 % (90-100); BLOOD GAS OXYGEN CONTENT 11.2 Vol % (12.0-20.0); BLOOD GAS PCO2 33 mmHg (38-42); BLOOD GAS PO2 76 mmHg (61-120); BLOOD GAS TOTAL HGB 8.4 G/DL (12.0-16.0); CRITICAL VALUE NO; DRAW SITE ART LINE; OXYGEN DEVICE VENTILATOR; STAT NO; TEMP CORR TO 98.6
[2016-12-03 04:14] LABS: FIO2 50 %; VENT SETTINGS PRVC/AC
[2016-12-03] MEDS: PROPOFOL 1000 MG/100 ML IV SCH ×2 (04:48→10:08)
[2016-12-03] MEDS: fentaNYL 2,500 MCG/NS 250 ML IV SCH ×2 (04:48→21:19)
[2016-12-03 04:52] LABS: HEMATOCRIT 24.6 % (35.0-46.0); MEAN CELL VOLUME 87.9 FL (80.0-100.0); MEAN CORPUSCULAR HGB CONC 34.1 % (32.0-36.0); PLATELET COUNT 146 TH/MM3 (150-450); RED CELL DISTRIBUTION WIDTH 14.8 % (11.6-17.2); REVIEW FLAG FINAL; WHITE BLOOD COUNT 22.3 TH/MM3 (4.0-11.0)
--- NOTE | 2016-12-03 04:55 | RADRPT ---
EXAM DATE/TIME: 12/03/2016 03:45 [facility] COMPARISON: CHEST SINGLE AP, December 01, 2016, 5:39. INDICATIONS : Shortness of breath. MEDICAL HISTORY : None. SURGICAL HISTORY : None. ENCOUNTER: Subsequent ACUITY: 1 week PAIN SCORE: Non-responsive. LOCATION: Bilateral chest FINDINGS: The cardiac silhouette is enlarged in transverse diameter. There is left lower lobe atelectasis versu s pneumonia. Support lines and tubes are in satisfactory position. The right lung is free of acute pa renchymal opacity. CONCLUSION: 1. Left lower lobe atelectasis versus pneumonia. The findings are similar to the prior exam. Matt Horne MD on December 03, 2016 at 4:53 Board Certified Radiologist. This report was verified electronically.
[2016-12-03 05:08] LABS: BICARBONATE 28.3 MEQ/L (21.0-32.0); MAGNESIUM 1.5 MG/DL (1.5-2.5)
[2016-12-03 05:16] LABS: POTASSIUM 2.9 MEQ/L (3.5-5.1)
[2016-12-03] MEDS: POTASSIUM CL 40 MEQ/30 ML LIQ UDC PO/TUBE PRN ×2 (05:22→15:44)
[2016-12-03] MEDS: POTASSIUM CHLOR 40 MEQ PREMIX 100 ML IV PRN ×2 (05:22→15:45)
[2016-12-03 05:32] LABS: CALCIUM-PROTEIN CORRECTED 8.8 MG/DL (8.5-10.1)
[2016-12-03] MEDS: INSULIN NovoLIN REGULAR SUPPLEMENTAL SCALE SQ SCH ×4 (06:00→18:00)
[2016-12-03] MEDS: SODIUM CHLORIDE 0.9% FLUSH 5 ML FLUSH IV FLUSH SCH ×2 (09:16→20:18)
[2016-12-03] MEDS: PANTOPRAZOLE SODIUM 40 MG VIAL IV SCH (09:17)
[2016-12-03] MEDS: DOCUSATE SODIUM 100 MG/10 ML UDC OG SCH ×2 (09:17→20:31)
[2016-12-03] MEDS: ARTIFICIAL TEARS OPTH SOLN 15 ML BTL EACH EYE SCH ×3 (09:17→18:29)
[2016-12-03] MEDS: ENOXAPARIN SODIUM 40 MG/0.4 ML SYRINGE SQ SCH (10:07)
[2016-12-03] MEDS ORDERED: FUROSEMIDE 40 MG/4 ML VIAL IV PUSH ONE (11:00)
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
[2016-12-03] MEDS: MAGNESIUM SULFATE INJ 2 GM in SODIUM CHLORIDE 0.9% INJ 96 ML IV PRN (15:45)
[2016-12-03] MEDS: CLINIMIX E 5/25 2000 mL- >42 mls/hr IV-CENTRAL SCH ×3 (20:17)
[2016-12-03] MEDS: RESP: ALBUTEROL 2.5 MG/IPRATROPIUM 0.5 MG NEB (PRN) INH (20:50)
[2016-12-04] VITALS (21 sets, daily range): BP systolic 99–112; BP diastolic 50–60; PULSE 82–95; RESP 12–15; TEMP 99.3–100.4; O2SAT 92–100
[2016-12-04] MEDS: INSULIN NovoLIN REGULAR SUPPLEMENTAL SCALE SQ SCH ×4 (00:28→18:00)
[2016-12-04] MEDS: CHLORHEXIDINE GLUCONATE 2 % 1 PACK (2 CLOTHS) TOP SCH (02:07)
[2016-12-04 04:43] LABS: BLOOD GAS BASE EXCESS 3.5 mmol/L (-2-2); BLOOD GAS CARBOXYHEMOGLOBIN 2.3 % (0-4); BLOOD GAS HCO3 28 mmol/L (22-26); BLOOD GAS METHEMOGLOBIN 0.8 % (0-2); BLOOD GAS O2 HGB SATURATION 91 % (90-100); BLOOD GAS OXYGEN CONTENT 12.8 Vol % (12.0-20.0); BLOOD GAS PCO2 46 mmHg (38-42); BLOOD GAS PO2 72 mmHg (61-120); BLOOD GAS TOTAL HGB 9.9 G/DL (12.0-16.0); CRITICAL VALUE NO; OXYGEN DEVICE VENTILATOR; TEMP CORR TO 98.6
[2016-12-04 04:44] LABS: DRAW SITE ALINE; FIO2 40 %; STAT NO; ULNAR PULSE PRESENT; VENT SETTINGS PRVC/R10/500/1.5/+5
[2016-12-04 04:59] LABS: HEMATOCRIT 28.7 % (35.0-46.0); MEAN CELL VOLUME 89.4 FL (80.0-100.0); MEAN CORPUSCULAR HEMOGLOBIN 29.2 PG (27.0-34.0); MEAN CORPUSCULAR HGB CONC 32.6 % (32.0-36.0); PLATELET COUNT 175 TH/MM3 (150-450); RED BLOOD COUNT 3.22 MIL/MM3 (4.00-5.30); RED CELL DISTRIBUTION WIDTH 15.1 % (11.6-17.2); WHITE BLOOD COUNT 37.7 TH/MM3 (4.0-11.0)
[2016-12-04 05:07] LABS: REVIEW FLAG FINAL
[2016-12-04] MEDS: PROPOFOL 1000 MG/100 ML IV SCH ×2 (05:11→15:56)
[2016-12-04] MEDS: ACETAMINOPHEN 1000 MG/100 ML VIAL IV PRN ×2 (05:11→15:56)
[2016-12-04 05:18] LABS: BICARBONATE 29.1 MEQ/L (21.0-32.0); POTASSIUM 3.5 MEQ/L (3.5-5.1)
--- NOTE | 2016-12-04 05:22 | RADRPT ---
EXAM DATE/TIME: 12/04/2016 04:26 [facility] COMPARISON: CHEST SINGLE AP, December 03, 2016, 3:45. INDICATIONS : Shortness of breath. MEDICAL HISTORY : None. SURGICAL HISTORY : None. ENCOUNTER: Subsequent ACUITY: 1 week PAIN SCORE: Non-responsive. LOCATION: Bilateral chest FINDINGS: Endotracheal tube, nasogastric tube and right neck sheath remain in place. There has been increasing confluence of left lung infiltrate. Slight perihilar parenchymal opacity is again noted on the right and CONCLUSION: Worsening left lung aeration Celestine Masterson MD on December 04, 2016 at 5:19 Board Certified Radiologist. This report was verified electronically.
[2016-12-04] MEDS: PANTOPRAZOLE SODIUM 40 MG VIAL IV SCH (08:47)
[2016-12-04] MEDS: ARTIFICIAL TEARS OPTH SOLN 15 ML BTL EACH EYE SCH ×3 (08:47→18:00)
[2016-12-04] MEDS: DOCUSATE SODIUM 100 MG/10 ML UDC OG SCH ×2 (08:51→20:25)
[2016-12-04] MEDS: SODIUM CHLORIDE 0.9% FLUSH 5 ML FLUSH IV FLUSH SCH ×2 (08:51→20:25)
[2016-12-04] MEDS: POTASSIUM CHLOR 40 MEQ PREMIX 100 ML IV PRN (09:16)
[2016-12-04] MEDS: ENOXAPARIN SODIUM 40 MG/0.4 ML SYRINGE SQ SCH (11:00)
[2016-12-04] MEDS ORDERED: MIDAZOLAM HCL 5 MG/ML VIAL (1 ML) ONE (14:38)
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
[2016-12-04] MEDS ORDERED: MIDAZOLAM HCL 5 MG/ML VIAL (1 ML) IVP ONE (15:15)
[2016-12-04] MEDS ORDERED: FUROSEMIDE 40 MG/4 ML VIAL IV PUSH ONE (16:15)
[2016-12-04] MEDS: fentaNYL 2,500 MCG/NS 250 ML IV SCH (20:25)
[2016-12-04] MEDS: CLINIMIX E 5/25 2000 mL- >42 mls/hr IV-CENTRAL SCH ×3 (21:11)
[2016-12-05] VITALS (18 sets, daily range): BP systolic 107–110; BP diastolic 50–62; PULSE 86–120; RESP 16–21; TEMP 100–101.3; O2SAT 93–98
[2016-12-05] MEDS: INSULIN NovoLIN REGULAR SUPPLEMENTAL SCALE SQ SCH ×4 (00:11→18:00)
[2016-12-05] MEDS: PROPOFOL 1000 MG/100 ML IV SCH ×4 (00:11→21:10)
[2016-12-05] MEDS: CHLORHEXIDINE GLUCONATE 2 % 1 PACK (2 CLOTHS) TOP SCH (04:00)
[2016-12-05 04:42] LABS: AUTOMATED NEUTROPHIL # 32.9 TH/MM3 (1.8-7.7); BASOPHIL % 0.1 % (0.0-2.0); EOSINOPHIL # 0.6 TH/MM3 (0-0.4); EOSINOPHIL % 1.7 % (0.0-4.0); HEMATOCRIT 27.2 % (35.0-46.0); LYMPH % 6.1 % (9.0-44.0); LYMPHOCYTE # 2.2 TH/MM3 (1.0-4.8); MEAN CORPUSCULAR HEMOGLOBIN 29.1 PG (27.0-34.0); MEAN CORPUSCULAR HGB CONC 32.7 % (32.0-36.0); MONO % 2.4 % (0.0-8.0); NEUT % 89.7 % (16.0-70.0); PLATELET COUNT 191 TH/MM3 (150-450); RED BLOOD COUNT 3.06 MIL/MM3 (4.00-5.30); RED CELL DISTRIBUTION WIDTH 14.9 % (11.6-17.2); WHITE BLOOD COUNT 36.7 TH/MM3 (4.0-11.0)
[2016-12-05 04:53] LABS: BICARBONATE 32.5 MEQ/L (21.0-32.0); POTASSIUM 3.1 MEQ/L (3.5-5.1)
[2016-12-05] MEDS: POTASSIUM CL 40 MEQ/30 ML LIQ UDC PO/TUBE PRN (05:04)
[2016-12-05 05:05] LABS: HEMO FLAGS AUTO DIFF
[2016-12-05 05:44] LABS: BLOOD GAS BASE EXCESS 4.7 mmol/L (-2-2); BLOOD GAS CARBOXYHEMOGLOBIN 2.1 % (0-4); BLOOD GAS HCO3 29 mmol/L (22-26); BLOOD GAS METHEMOGLOBIN 0.9 % (0-2); BLOOD GAS O2 HGB SATURATION 90 % (90-100); BLOOD GAS PCO2 46 mmHg (38-42); BLOOD GAS PO2 65 mmHg (61-120); BLOOD GAS TOTAL HGB 10.3 G/DL (12.0-16.0); TEMP CORR TO 98.6
[2016-12-05 05:45] LABS: CRITICAL VALUE NO; OXYGEN DEVICE VENTILATOR
[2016-12-05 05:46] LABS: DRAW SITE ART LINE; FIO2 40 %; NUMBER OF ARTERIAL PUNCTURES 0; STAT NO; ULNAR PULSE PRESENT; VENT SETTINGS PRVC/AC/10/500/1.0/5
--- NOTE | 2016-12-05 06:48 | RADRPT ---
EXAM DATE/TIME: 12/05/2016 05:56 [facility] COMPARISON: CHEST SINGLE AP, December 04, 2016, 4:26. INDICATIONS : Shortness of breath. MEDICAL HISTORY : None. SURGICAL HISTORY : None. ENCOUNTER: Subsequent ACUITY: 1 week PAIN SCORE: Non-responsive. LOCATION: Bilateral chest FINDINGS: Endotracheal tube and nasogastric tube are stable. Aeration is improving with decrease in confluence of left lung infiltrate. Cardiac contours are satisfactory common for projection. CONCLUSION: Improving aeration. Celestine Masterson MD on December 05, 2016 at 6:47 Board Certified Radiologist. This report was verified electronically.
[2016-12-05 08:31] LABS: BANDS 15 % (0-6); EOSINOPHILS 1 % (0-4); METAMYELOCYTES 3 % (0-1); MYELOCYTES 9 % (0-0); NEUTROPHIL # MANUAL DIFF 35.6 TH/MM3 (1.8-7.7); POLYS (SEG NEUTROPHILS) 70 % (16-70); WBC DIFF SAMPLE 100
[2016-12-05 08:33] LABS: PLATELET ESTIMATE SMEAR NORMAL (NORMAL); PLATELET MORPHOLOGY ENLARGED (NORMAL); POLYCHROMASIA 2.1 % (0.0-1.9); SCAN/DIFF FINAL DIFF MANUAL
[2016-12-05] MEDS: SODIUM CHLORIDE 0.9% FLUSH 5 ML FLUSH IV FLUSH SCH ×2 (09:00→19:49)
[2016-12-05 09:07] LABS: NUMBER OF ARTERIAL PUNCTURES 1; ULNAR PULSE PRESENT
[2016-12-05] MEDS: DOCUSATE SODIUM 100 MG/10 ML UDC OG SCH ×2 (09:26→19:49)
[2016-12-05] MEDS: ARTIFICIAL TEARS OPTH SOLN 15 ML BTL EACH EYE SCH ×3 (09:26→18:02)
[2016-12-05] MEDS: PANTOPRAZOLE SODIUM 40 MG VIAL IV SCH (09:26)
[2016-12-05] MEDS ORDERED: LACTULOSE SYRUP 20 GM/30 ML CUP PO ONE (10:00)
[2016-12-05] MEDS ORDERED: Vancomycin Consult Pharmacy 1 EA OTHER SCH (10:00)
[2016-12-05] MEDS ORDERED: VANCOMYCIN INJ 1,000 MG in SODIUM CHLOR 0.9% 250 ML INJ 250 ML IV SCH (10:00)
[2016-12-05] MEDS ORDERED: BISACODYL 10 MG SUPP RECTAL ONE (10:00)
[2016-12-05] MEDS: LEVOFLOXACIN 500 MG PREMIX INJ 100 ML IV SCH (10:40)
[2016-12-05] MEDS: FLUCONAZOLE 200 MG PREMIX BAG 100 ML IV SCH (10:40)
[2016-12-05] MEDS: ENOXAPARIN SODIUM 40 MG/0.4 ML SYRINGE SQ SCH (10:41)
[2016-12-05] MEDS: VANCOMYCIN INJ 1,500 MG in SODIUM CHLORID 0.9% 500 ML INJ 500 ML IV SCH (12:12)
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
[2016-12-05] MEDS: ACETAMINOPHEN 1000 MG/100 ML VIAL IV PRN (14:15)
[2016-12-05] MEDS: fentaNYL 2,500 MCG/NS 250 ML IV SCH (18:00)
[2016-12-05] MEDS: CLINIMIX E 5/25 2000 mL- >42 mls/hr IV-CENTRAL SCH ×3 (19:49)
[2016-12-06] VITALS (19 sets, daily range): BP systolic 103–121; BP diastolic 51–64; PULSE 84–114; RESP 18–26; TEMP 99.7–101.8; O2SAT 94–100
[2016-12-06] MEDS: VANCOMYCIN INJ 1,500 MG in SODIUM CHLORID 0.9% 500 ML INJ 500 ML IV SCH ×2 (00:19→11:40)
[2016-12-06] MEDS: PROPOFOL 1000 MG/100 ML IV SCH ×4 (00:23→15:32)
[2016-12-06] MEDS: ACETAMINOPHEN 1000 MG/100 ML VIAL IV PRN ×2 (00:23→15:32)
[2016-12-06] MEDS: CHLORHEXIDINE GLUCONATE 2 % 1 PACK (2 CLOTHS) TOP SCH ×2 (04:00→22:08)
[2016-12-06 05:27] LABS: HEMATOCRIT 24.8 % (35.0-46.0); MEAN CELL VOLUME 90.9 FL (80.0-100.0); MEAN CORPUSCULAR HEMOGLOBIN 29.5 PG (27.0-34.0); MEAN CORPUSCULAR HGB CONC 32.4 % (32.0-36.0); PLATELET COUNT 232 TH/MM3 (150-450); RED BLOOD COUNT 2.73 MIL/MM3 (4.00-5.30); RED CELL DISTRIBUTION WIDTH 14.6 % (11.6-17.2); WHITE BLOOD COUNT 35.4 TH/MM3 (4.0-11.0)
[2016-12-06 05:31] LABS: REVIEW FLAG FINAL
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
[2016-12-06 05:54] LABS: BLOOD GAS BASE EXCESS 4.6 mmol/L (-2-2); BLOOD GAS CARBOXYHEMOGLOBIN 1.7 % (0-4); BLOOD GAS HCO3 29 mmol/L (22-26); BLOOD GAS METHEMOGLOBIN 0.8 % (0-2); BLOOD GAS O2 HGB SATURATION 94 % (90-100); BLOOD GAS PCO2 49 mmHg (38-42); BLOOD GAS PO2 83 mmHg (61-120); BLOOD GAS TOTAL HGB 11.3 G/DL (12.0-16.0); TEMP CORR TO 98.6
[2016-12-06 05:55] LABS: CRITICAL VALUE NO; DRAW SITE RT BRACHIAL; FIO2 50 %; NUMBER OF ARTERIAL PUNCTURES 1; OXYGEN DEVICE VENTILATOR; STAT NO; VENT SETTINGS PRVC/AC
[2016-12-06 05:55] LABS: BICARBONATE 30.9 MEQ/L (21.0-32.0); POTASSIUM 3.3 MEQ/L (3.5-5.1)
[2016-12-06] MEDS: POTASSIUM CHLOR 40 MEQ PREMIX 100 ML IV PRN (06:08)
[2016-12-06] MEDS: INSULIN NovoLIN REGULAR SUPPLEMENTAL SCALE SQ SCH ×4 (06:08→18:00)
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
[2016-12-06] MEDS: PANTOPRAZOLE SODIUM 40 MG VIAL IV SCH (09:18)
[2016-12-06] MEDS: LEVOFLOXACIN 500 MG PREMIX INJ 100 ML IV SCH (09:18)
[2016-12-06] MEDS: ENOXAPARIN SODIUM 40 MG/0.4 ML SYRINGE SQ SCH (09:18)
[2016-12-06] MEDS: DOCUSATE SODIUM 100 MG/10 ML UDC OG SCH ×2 (09:18→22:08)
[2016-12-06] MEDS: ARTIFICIAL TEARS OPTH SOLN 15 ML BTL EACH EYE SCH ×3 (09:19→18:00)
[2016-12-06] MEDS: SODIUM CHLORIDE 0.9% FLUSH 5 ML FLUSH IV FLUSH SCH ×2 (09:19→21:00)
[2016-12-06] MEDS: FLUCONAZOLE 200 MG PREMIX BAG 100 ML IV SCH (09:19)
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
[2016-12-06] MEDS: CHLORHEXIDINE 0.12% (ORAL KIT) 15 ML CUP MT SCH (20:00)
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
[2016-12-06] MEDS: CLINIMIX E 5/25 2000 mL- >42 mls/hr IV-CENTRAL SCH ×3 (22:06)
[2016-12-06] MEDS: AZTREONAM INJ 2,000 MG in SODIUM CHLORIDE 0.9% INJ 100 ML IV SCH (22:06)
[2016-12-06] MEDS: metroNIDAZOLE 500 MG INJ 100 ML IV SCH (22:07)
[2016-12-06] MEDS ORDERED: PHARMACY ORDERED LAB XX ONE (23:45)
[2016-12-07] VITALS (19 sets, daily range): BP systolic 108–120; BP diastolic 53–60; PULSE 98–108; RESP 18–26; TEMP 98.6–101.8; O2SAT 94–100
[2016-12-07] MEDS ORDERED: NYSTATIN 100,000 U/GM PWD 15 GM BTL TOPICAL PRN (02:15)
[2016-12-07] MEDS: VANCOMYCIN INJ 1,500 MG in SODIUM CHLORID 0.9% 500 ML INJ 500 ML IV SCH (02:18)
[2016-12-07 03:27] LABS: BACTERIA, URINE OCC /hpf; BLOOD, URINE MOD (NEG); COMMENT (UR) CATH-CULTURE IND; CULTURE IF INDICATED CATH CULTURE IND; GLUCOSE,URINE NEG (NEG); KETONE, URINE NEG (NEG); MUCUS URINE FEW /lpf (OCC); NITRITE,URINE NEG (NEG); PH, URINE 5.5 (5.0-8.5); SQUAMOUS EPITHELIAL CELL URINE 4 /hpf (0-5); URINE COLOR DARK-BROWN (YELLW/STRAW)
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
[2016-12-07 04:56] LABS: MEAN CELL VOLUME 89.3 FL (80.0-100.0); MEAN CORPUSCULAR HEMOGLOBIN 29.6 PG (27.0-34.0); MEAN CORPUSCULAR HGB CONC 33.1 % (32.0-36.0); PLATELET COUNT 237 TH/MM3 (150-450); RED BLOOD COUNT 2.58 MIL/MM3 (4.00-5.30); RED CELL DISTRIBUTION WIDTH 14.8 % (11.6-17.2); WHITE BLOOD COUNT 32.7 TH/MM3 (4.0-11.0)
[2016-12-07 05:00] LABS: REVIEW FLAG FINAL
[2016-12-07 05:20] LABS: BLOOD GAS BASE EXCESS 3.1 mmol/L (-2-2); BLOOD GAS CARBOXYHEMOGLOBIN 1.8 % (0-4); BLOOD GAS HCO3 28 mmol/L (22-26); BLOOD GAS METHEMOGLOBIN 0.7 % (0-2); BLOOD GAS O2 HGB SATURATION 95 % (90-100); BLOOD GAS OXYGEN CONTENT 11.3 Vol % (12.0-20.0); BLOOD GAS PCO2 46 mmHg (38-42); BLOOD GAS PO2 89 mmHg (61-120); BLOOD GAS TOTAL HGB 8.4 G/DL (12.0-16.0); CRITICAL VALUE NO; OXYGEN DEVICE VENTILATOR; TEMP CORR TO 98.6
[2016-12-07 05:22] LABS: DRAW SITE RT RADIAL; FIO2 50 %; NUMBER OF ARTERIAL PUNCTURES 1; STAT NO; ULNAR PULSE PRESENT; VENT SETTINGS PRVC/AC/10/500/IT1.0
[2016-12-07 05:23] LABS: BICARBONATE 31.3 MEQ/L (21.0-32.0); POTASSIUM 3.6 MEQ/L (3.5-5.1)
[2016-12-07] MEDS: metroNIDAZOLE 500 MG INJ 100 ML IV SCH ×2 (06:26→13:21)
[2016-12-07] MEDS: AZTREONAM INJ 2,000 MG in SODIUM CHLORIDE 0.9% INJ 100 ML IV SCH ×2 (06:26→13:21)
[2016-12-07] MEDS: INSULIN NovoLIN REGULAR SUPPLEMENTAL SCALE SQ SCH ×3 (06:27→18:00)
[2016-12-07] MEDS: ARTIFICIAL TEARS OPTH SOLN 15 ML BTL EACH EYE SCH ×3 (08:54→18:09)
[2016-12-07] MEDS: SODIUM CHLORIDE 0.9% FLUSH 5 ML FLUSH IV FLUSH SCH ×2 (08:54→20:31)
[2016-12-07] MEDS: ACETAMINOPHEN 1000 MG/100 ML VIAL IV PRN (08:54)
[2016-12-07] MEDS: PANTOPRAZOLE SODIUM 40 MG VIAL IV SCH (08:54)
[2016-12-07] MEDS: DOCUSATE SODIUM 100 MG/10 ML UDC OG SCH ×2 (08:54→20:31)
[2016-12-07] MEDS: CHLORHEXIDINE 0.12% (ORAL KIT) 15 ML CUP MT SCH ×2 (08:55→20:31)
[2016-12-07] MEDS: PROPOFOL 1000 MG/100 ML IV SCH ×3 (08:57→17:53)
[2016-12-07] MEDS: fentaNYL 2,500 MCG/NS 250 ML IV SCH (10:50)
[2016-12-07] MEDS: VANCOMYCIN INJ 1,750 MG in SODIUM CHLORID 0.9% 500 ML INJ 500 ML IV SCH ×2 (10:50→22:57)
[2016-12-07] MEDS: FLUCONAZOLE 200 MG PREMIX BAG 100 ML IV SCH (10:50)
[2016-12-07] MEDS: ENOXAPARIN SODIUM 40 MG/0.4 ML SYRINGE SQ SCH (10:50)
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
[2016-12-07] MEDS ORDERED: EPINEPHrine HCL (1:10,000) 1 MG/10 ML SYRINGE ONE (11:17)
[2016-12-07] MEDS ORDERED: LIDOCAINE HCL 2% 100 MG/5 ML SYRINGE ONE (11:17)
[2016-12-07] MEDS ORDERED: ATROPINE SULFATE 1 MG/10 ML SYRINGE ONE (11:17)
[2016-12-07] MEDS ORDERED: IOHEXOL 350 MG/ML 10 ML VIAL (for RAD DIAG) IV ONE (11:56)
[2016-12-07] MEDS ORDERED: ALTEPLASE RECOMBINANT 2 MG VIAL INTRACATH ONE (12:30)
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
[2016-12-07] MEDS ORDERED: ASP: Other exception documentation: ( ) XX PRN (14:45)
[2016-12-07] MEDS ORDERED: MISCELLANEOUS PHARMACY INFORMATION XX PRN (14:45)
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
[2016-12-07] MEDS: MEROPENEM INJ 1,000 MG in SODIUM CHLORIDE 0.9% INJ 100 ML IV SCH ×2 (16:59→23:38)
[2016-12-07] MEDS: MICAFUNGIN INJ 150 MG in SODIUM CHLORIDE 0.9% INJ 100 ML IV SCH (17:53)
[2016-12-07] MEDS: CLINIMIX E 5/25 2000 mL- >42 mls/hr IV-CENTRAL SCH ×3 (20:31)
[2016-12-07] MEDS: RESP: ALBUTEROL 2.5 MG/IPRATROPIUM 0.5 MG NEB (PRN) INH (23:44)
[2016-12-08] VITALS (23 sets, daily range): BP systolic 94–130; BP diastolic 51–65; PULSE 83–107; RESP 16–26; TEMP 99–101.7; O2SAT 93–100
[2016-12-08] MEDS: PROPOFOL 1000 MG/100 ML IV SCH ×5 (03:14→18:40)
[2016-12-08] MEDS: CHLORHEXIDINE GLUCONATE 2 % 1 PACK (2 CLOTHS) TOP SCH (03:15)
[2016-12-08] MEDS: INSULIN NovoLIN REGULAR SUPPLEMENTAL SCALE SQ SCH ×4 (06:00→18:00)
[2016-12-08 06:12] LABS: MEAN CELL VOLUME 89.4 FL (80.0-100.0); MEAN CORPUSCULAR HEMOGLOBIN 29.2 PG (27.0-34.0); MEAN CORPUSCULAR HGB CONC 32.7 % (32.0-36.0); PLATELET COUNT 286 TH/MM3 (150-450); RED BLOOD COUNT 2.47 MIL/MM3 (4.00-5.30); RED CELL DISTRIBUTION WIDTH 15.3 % (11.6-17.2); REVIEW FLAG FINAL; WHITE BLOOD COUNT 28.1 TH/MM3 (4.0-11.0)
[2016-12-08 06:44] LABS: BICARBONATE 29.7 MEQ/L (21.0-32.0); POTASSIUM 3.1 MEQ/L (3.5-5.1)
[2016-12-08] MEDS: fentaNYL 2,500 MCG/NS 250 ML IV SCH ×2 (06:50→18:40)
[2016-12-08] MEDS: PANTOPRAZOLE SODIUM 40 MG VIAL IV SCH ×2 (09:00→09:06)
[2016-12-08] MEDS: MEROPENEM INJ 1,000 MG in SODIUM CHLORIDE 0.9% INJ 100 ML IV SCH ×2 (09:05→16:19)
[2016-12-08] MEDS: SODIUM CHLORIDE 0.9% FLUSH 5 ML FLUSH IV FLUSH SCH ×2 (09:06→21:00)
[2016-12-08] MEDS: DOCUSATE SODIUM 100 MG/10 ML UDC OG SCH ×2 (09:06→21:00)
[2016-12-08] MEDS: ARTIFICIAL TEARS OPTH SOLN 15 ML BTL EACH EYE SCH ×3 (09:07→17:18)
[2016-12-08] MEDS: CHLORHEXIDINE 0.12% (ORAL KIT) 15 ML CUP MT SCH ×2 (09:07→20:00)
[2016-12-08] MEDS: ENOXAPARIN SODIUM 40 MG/0.4 ML SYRINGE SQ SCH (11:00)
[2016-12-08] MEDS ORDERED: SODIUM CHLOR 0.9% 250 ML INJ 250 ML IV ONE (11:00)
[2016-12-08] MEDS ORDERED: MISC INFORMATION OTHER ONE (11:00)
[2016-12-08] MEDS ORDERED: VECURONIUM BROMIDE 10 MG VIAL IV SCH (11:00)
[2016-12-08] MEDS ORDERED: ROCURONIUM INJ 50 MG/5 ML VIAL IV ONE (11:00)
[2016-12-08] MEDS: POTASSIUM CHLOR 40 MEQ PREMIX 100 ML IV PRN (11:55)
[2016-12-08] MEDS: VANCOMYCIN INJ 1,750 MG in SODIUM CHLORID 0.9% 500 ML INJ 500 ML IV SCH ×2 (11:55→23:00)
[2016-12-08] MEDS ORDERED: TERBUTALINE INJ 1 MG/ML AMP SQ PRN (12:30)
[2016-12-08] MEDS ORDERED: MIDAZOLAM HCL 5 MG/ML VIAL (1 ML) IV ONE (12:30)
[2016-12-08] MEDS ORDERED: VECURONIUM BROMIDE 10 MG VIAL IV PUSH ONE (12:30)
[2016-12-08] MEDS: ACETAMINOPHEN 1000 MG/100 ML VIAL IV PRN (12:48)
[2016-12-08] MEDS ORDERED: NOREPINEPHRINE-DEXTROSE DRIP 250 ML IV SCH (13:00)
--- NOTE | 2016-12-08 15:07 | PD.PROCEDR ---
Procedure Note Procedure DX: Respiratory Failure (J96.01) OP: Diagnostic Flexible Bronchoscopy Procedure: Patient on mechanical ventilation with ICU monitoring in place. Sats 100%, FiO2 1.0. Versed 5 mg, Fentanyl 100 mg, Vecuronium 10 mg iv. Flexible scope delivered through elbow using sealed gasket. Tracheobronchial tree inspected. Endotracheal tube withdrawn to cricoid level while surgeon performed percutaneous tracheostomy. Following trach insertion, bronch repeated through new trach tube confirming tracheal position. Ventilation switched over to new trach tube with full return of ventilator breaths. Sats maintained over 90% throughout procedure. Abdon Marroquin MD Dec 08, 2016 15:07
[2016-12-08] MEDS: MICAFUNGIN INJ 150 MG in SODIUM CHLORIDE 0.9% INJ 100 ML IV SCH (17:18)
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
[2016-12-08] MEDS: CLINIMIX E 5/25 2000 mL- >42 mls/hr IV-CENTRAL SCH ×3 (18:53)
[2016-12-08] MEDS: RESP: ALBUTEROL 2.5 MG/IPRATROPIUM 0.5 MG NEB (PRN) INH (23:27)
[2016-12-09] VITALS (18 sets, daily range): BP systolic 94–134; BP diastolic 50–82; PULSE 78–124; RESP 16–21; TEMP 98.2–101.8; O2SAT 95–99
[2016-12-09] MEDS: CHLORHEXIDINE GLUCONATE 2 % 1 PACK (2 CLOTHS) TOP SCH (04:00)
[2016-12-09] MEDS: ACETAMINOPHEN 1000 MG/100 ML VIAL IV PRN ×2 (05:00→17:15)
[2016-12-09 05:06] LABS: BLOOD GAS BASE EXCESS 3.2 mmol/L (-2-2); BLOOD GAS CARBOXYHEMOGLOBIN 1.3 % (0-4); BLOOD GAS HCO3 28 mmol/L (22-26); BLOOD GAS METHEMOGLOBIN 0.6 % (0-2); BLOOD GAS O2 HGB SATURATION 95 % (90-100); BLOOD GAS OXYGEN CONTENT 19.1 Vol % (12.0-20.0); BLOOD GAS PCO2 49 mmHg (38-42); BLOOD GAS PO2 87 mmHg (61-120); BLOOD GAS TOTAL HGB 14.3 G/DL (12.0-16.0); CRITICAL VALUE NO; DRAW SITE LT RADIAL; FIO2 65 %; NUMBER OF ARTERIAL PUNCTURES 1; OXYGEN DEVICE VENTILATOR; STAT NO; TEMP CORR TO 98.6; ULNAR PULSE PRESENT; VENT SETTINGS PRVC/16/500/1.0/+10
[2016-12-09] MEDS: INSULIN NovoLIN REGULAR SUPPLEMENTAL SCALE SQ SCH ×4 (06:00→18:00)
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
[2016-12-09 06:47] LABS: BICARBONATE 30.3 MEQ/L (21.0-32.0); POTASSIUM 3.8 MEQ/L (3.5-5.1)
[2016-12-09 07:07] LABS: HEMATOCRIT 26.6 % (35.0-46.0); MEAN CELL VOLUME 87.5 FL (80.0-100.0); MEAN CORPUSCULAR HEMOGLOBIN 29.8 PG (27.0-34.0); PLATELET COUNT 314 TH/MM3 (150-450); RED BLOOD COUNT 3.04 MIL/MM3 (4.00-5.30); RED CELL DISTRIBUTION WIDTH 14.6 % (11.6-17.2); REVIEW FLAG FINAL; WHITE BLOOD COUNT 21.7 TH/MM3 (4.0-11.0)
[2016-12-09] MEDS: PROPOFOL 1000 MG/100 ML IV SCH ×4 (08:53→21:10)
[2016-12-09] MEDS: CHLORHEXIDINE 0.12% (ORAL KIT) 15 ML CUP MT SCH ×2 (08:54→21:09)
[2016-12-09] MEDS: ARTIFICIAL TEARS OPTH SOLN 15 ML BTL EACH EYE SCH ×3 (08:54→18:07)
[2016-12-09] MEDS: SODIUM CHLORIDE 0.9% FLUSH 5 ML FLUSH IV FLUSH SCH ×2 (08:55→21:10)
[2016-12-09] MEDS: MEROPENEM INJ 1,000 MG in SODIUM CHLORIDE 0.9% INJ 100 ML IV SCH ×4 (08:55→15:15)
[2016-12-09] MEDS: DOCUSATE SODIUM 100 MG/10 ML UDC OG SCH ×2 (08:55→21:10)
[2016-12-09] MEDS: PANTOPRAZOLE SODIUM 40 MG VIAL IV SCH (08:55)
[2016-12-09] MEDS ORDERED: PHARMACY ORDERED LAB XX ONE (10:45)
[2016-12-09] MEDS: VANCOMYCIN INJ 1,750 MG in SODIUM CHLORID 0.9% 500 ML INJ 500 ML IV SCH ×2 (11:21→23:31)
[2016-12-09] MEDS: fentaNYL 2,500 MCG/NS 250 ML IV SCH (13:42)
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
[2016-12-09] MEDS: MICAFUNGIN INJ 150 MG in SODIUM CHLORIDE 0.9% INJ 100 ML IV SCH (17:14)
[2016-12-09] MEDS: CLINIMIX E 5/25 2000 mL- >42 mls/hr IV-CENTRAL SCH ×3 (18:49)
[2016-12-10] VITALS (14 sets, daily range): BP systolic 102–131; BP diastolic 52–78; PULSE 88–102; RESP 16–24; TEMP 99.3–101.3; O2SAT 90–100
[2016-12-10] MEDS: MEROPENEM INJ 1,000 MG in SODIUM CHLORIDE 0.9% INJ 100 ML IV SCH ×4 (02:07→22:17)
[2016-12-10] MEDS: PROPOFOL 1000 MG/100 ML IV SCH ×6 (02:08→23:30)
[2016-12-10] MEDS: fentaNYL 2,500 MCG/NS 250 ML IV SCH (02:08)
[2016-12-10] MEDS: CHLORHEXIDINE GLUCONATE 2 % 1 PACK (2 CLOTHS) TOP SCH (04:00)
[2016-12-10 04:11] LABS: HEMATOCRIT 28.3 % (35.0-46.0); MEAN CELL VOLUME 88.1 FL (80.0-100.0); MEAN CORPUSCULAR HEMOGLOBIN 29.4 PG (27.0-34.0); MEAN CORPUSCULAR HGB CONC 33.3 % (32.0-36.0); PLATELET COUNT 417 TH/MM3 (150-450); RED BLOOD COUNT 3.21 MIL/MM3 (4.00-5.30); RED CELL DISTRIBUTION WIDTH 14.6 % (11.6-17.2); REVIEW FLAG FINAL; WHITE BLOOD COUNT 19.7 TH/MM3 (4.0-11.0)
[2016-12-10 04:42] LABS: BICARBONATE 32.6 MEQ/L (21.0-32.0); MAGNESIUM 2.2 MG/DL (1.5-2.5); POTASSIUM 3.6 MEQ/L (3.5-5.1)
[2016-12-10] MEDS: ACETAMINOPHEN 1000 MG/100 ML VIAL IV PRN ×2 (05:00→13:18)
[2016-12-10 05:27] LABS: BLOOD GAS BASE EXCESS 4.5 mmol/L (-2-2); BLOOD GAS CARBOXYHEMOGLOBIN 1.5 % (0-4); BLOOD GAS HCO3 29 mmol/L (22-26); BLOOD GAS METHEMOGLOBIN 0.8 % (0-2); BLOOD GAS O2 HGB SATURATION 92 % (90-100); BLOOD GAS PCO2 50 mmHg (38-42); BLOOD GAS PO2 73 mmHg (61-120); CRITICAL VALUE NO; OXYGEN DEVICE VENTILATOR; TEMP CORR TO 98.6
[2016-12-10 05:28] LABS: DRAW SITE LT RADIAL; FIO2 55 %; NUMBER OF ARTERIAL PUNCTURES 1; STAT NO; ULNAR PULSE PRESENT; VENT SETTINGS PRVC/AC
[2016-12-10] MEDS: INSULIN NovoLIN REGULAR SUPPLEMENTAL SCALE SQ SCH ×4 (06:00→18:00)
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
[2016-12-10] MEDS: SODIUM CHLORIDE 0.9% FLUSH 5 ML FLUSH IV FLUSH SCH ×2 (08:55→22:17)
[2016-12-10] MEDS: PANTOPRAZOLE SODIUM 40 MG VIAL IV SCH (08:55)
[2016-12-10] MEDS: ARTIFICIAL TEARS OPTH SOLN 15 ML BTL EACH EYE SCH ×3 (08:55→18:06)
[2016-12-10] MEDS: DOCUSATE SODIUM 100 MG/10 ML UDC OG SCH ×2 (08:55→22:17)
[2016-12-10] MEDS: CHLORHEXIDINE 0.12% (ORAL KIT) 15 ML CUP MT SCH ×2 (08:56→22:17)
[2016-12-10] MEDS ORDERED: BUMETANIDE INJ 1 MG/4 ML VIAL IV PUSH ONE (09:45)
[2016-12-10] MEDS: VANCOMYCIN INJ 1,750 MG in SODIUM CHLORID 0.9% 500 ML INJ 500 ML IV SCH (10:28)
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
[2016-12-10] MEDS ORDERED: ROCURONIUM INJ 50 MG/5 ML VIAL IV ONE (12:30)
[2016-12-10] MEDS: RESP: ALBUTEROL 2.5 MG/IPRATROPIUM 0.5 MG NEB (PRN) INH (14:14)
[2016-12-10] MEDS: CLINIMIX E 5/25 2000 mL- >42 mls/hr IV-CENTRAL SCH ×3 (22:13)
[2016-12-10] MEDS: VANCOMYCIN INJ 1,750 MG in SODIUM CHLOR 0.9% 250 ML INJ 250 ML IV SCH (23:00)
[2016-12-11] VITALS (20 sets, daily range): BP systolic 101–119; BP diastolic 54–58; PULSE 86–100; RESP 16–18; TEMP 99.7–100.4; O2SAT 92–99
[2016-12-11] MEDS: PROPOFOL 1000 MG/100 ML IV SCH ×5 (02:15→23:46)
[2016-12-11] MEDS: CHLORHEXIDINE GLUCONATE 2 % 1 PACK (2 CLOTHS) TOP SCH (04:00)
[2016-12-11] MEDS: fentaNYL 2,500 MCG/NS 250 ML IV SCH ×2 (04:45→14:25)
[2016-12-11] MEDS: INSULIN NovoLIN REGULAR SUPPLEMENTAL SCALE SQ SCH ×5 (06:00→23:43)
[2016-12-11] MEDS ORDERED: LACTULOSE SYRUP 20 GM/30 ML CUP PO ONE (08:00)
[2016-12-11] MEDS: PANTOPRAZOLE SODIUM 40 MG VIAL IV SCH (08:13)
[2016-12-11] MEDS: MEROPENEM INJ 1,000 MG in SODIUM CHLORIDE 0.9% INJ 100 ML IV SCH ×3 (08:13→23:32)
[2016-12-11] MEDS: DOCUSATE SODIUM 100 MG/10 ML UDC OG SCH ×2 (08:13→20:34)
[2016-12-11] MEDS: SODIUM CHLORIDE 0.9% FLUSH 5 ML FLUSH IV FLUSH SCH ×2 (08:14→20:07)
[2016-12-11] MEDS: CHLORHEXIDINE 0.12% (ORAL KIT) 15 ML CUP MT SCH ×2 (08:14→20:07)
[2016-12-11] MEDS: ARTIFICIAL TEARS OPTH SOLN 15 ML BTL EACH EYE SCH ×3 (08:14→18:18)
[2016-12-11] MEDS ORDERED: BUMETANIDE INJ 1 MG/4 ML VIAL IV PUSH ONE (09:15)
[2016-12-11] MEDS ORDERED: POTASSIUM CL 40 MEQ/30 ML LIQ UDC PO ONE (09:15)
[2016-12-11 11:22] LABS: AUTOMATED NEUTROPHIL # 13.1 TH/MM3 (1.8-7.7); BASOPHIL # 0.1 TH/MM3 (0-0.2); BASOPHIL % 0.7 % (0.0-2.0); EOSINOPHIL # 1.4 TH/MM3 (0-0.4); EOSINOPHIL % 7.3 % (0.0-4.0); HEMATOCRIT 27.3 % (35.0-46.0); LYMPH % 13.5 % (9.0-44.0); LYMPHOCYTE # 2.6 TH/MM3 (1.0-4.8); MEAN CELL VOLUME 88.8 FL (80.0-100.0); MEAN CORPUSCULAR HEMOGLOBIN 29.2 PG (27.0-34.0); MEAN CORPUSCULAR HGB CONC 32.9 % (32.0-36.0); MONO % 9.3 % (0.0-8.0); NEUT % 69.2 % (16.0-70.0); PLATELET COUNT 455 TH/MM3 (150-450); RED BLOOD COUNT 3.08 MIL/MM3 (4.00-5.30); RED CELL DISTRIBUTION WIDTH 15.2 % (11.6-17.2); WHITE BLOOD COUNT 18.9 TH/MM3 (4.0-11.0)
[2016-12-11 11:24] LABS: HEMO FLAGS AUTO DIFF
--- NOTE | 2016-12-11 11:39 | EC ---
Study Study Date:12/08/2016 STUDY CONCLUSIONS SUMMARY - Left ventricle: The cavity size was normal. Systolic function was normal. The estimated ejection fraction was in the range of 65% to 70%. Although no diagnostic regional wall motion abnormality was identified, this possibility cannot be completely excluded on the basis of this study. - Aortic valve: Valve area: 2.61cm^2 (Vmax). - Mitral valve: Mild regurgitation. If LV function is below 40, please consider prescribing an ACEI or ARB or document rationale for non-use. PROCEDURE DATA STUDY STATUS: Elective. Procedure: Transthoracic echocardiography. Image quality was good. The study was technically limited due to poor acoustic window availability. Scanning was performed from the apical acoustic windows. Study completion: The patient tolerated the procedure well. Transthoracic echocardiography. M-mode, complete 2D, complete spectral Doppler, and color Doppler. Height: Height: 66in. Weight: Weight: 200.6lb. Body mass index: BMI: 32.4kg/m^2. Body surface area: BSA: 2m^2. Patient status: Inpatient. CARDIAC ANATOMY LEFT VENTRICLE: The cavity size was normal. Systolic function was normal. The estimated ejection fraction was in the range of 65% to 70%. Although no diagnostic regional wall motion abnormality was identified, this possibility cannot be completely excluded on the basis of this study. AORTIC VALVE: The valve appears to be grossly normal. Doppler: There was no stenosis. No significant regurgitation. Valve area: 2.61cm^2 (Vmax). Indexed valve area: 1.31cm^2/m^2 (Vmax). Peak gradient: 18mm Hg (S). MITRAL VALVE: The valve appears to be grossly normal. Doppler: There was no evidence for stenosis. Mild regurgitation. Peak gradient: 6mm Hg (D). PULMONIC VALVE: Not visualized. TRICUSPID VALVE: The valve appears to be grossly normal. Doppler: There was no evidence for stenosis. Trace regurgitation. PERICARDIUM: There was no pericardial effusion. Patient weight: 200.6lb _Ejection fraction:_ 65-75% _Fractional shortening:_ 32% up to 5Kg 5-11.5Kg 11.6-22.9Kg 23-45Kg 45-57Kg Aortic Root 7-13 <17 13-22 17-27 17-27 LA diam 6-13 <23 24-38 33-47 37-40 RVID 10-17 7-15 7-15 7-18 8-17 LVIDd 12-22 <32 24-38 33-47 37-40 LVPW 2-4 3-6 5-7 6-8 7-8 IVS 2-4 3-6 5-7 6-8 7-8 BASIC MEASUREMENTS ADULT NORMAL Left ventricle Volume, ED, MOD, 1-plane 68 ml Volume, ES, MOD, 1-plane 20 ml Ejection fraction, MOD, 1-plane 71 % Stroke volume, MOD, 1-plane 48 ml Volume index, ED, MOD, 1-plane 34 ml/m^2 Volume index, ES, MOD, 1-plane 10 ml/m^2 Stroke index, MOD, 1-plane 24 ml/m^2 Volume, ED, MOD, 2-plane 75 ml Volume, ES, MOD, 2-plane 22 ml Ejection fraction, MOD, 2-plane 71 % Stroke volume, MOD, 2-plane 53 ml Volume index, ED, MOD, 2-plane 38 ml/m^2 Volume index, ES, MOD, 2-plane 11 ml/m^2 Stroke index, MOD, 2-plane 26.5 ml/m^2 DOPPLER MEASUREMENTS ADULT NORMAL Main pulmonary artery Pressure, S 27 mm Hg =30 Aortic valve Peak velocity, S 212 cm/s Peak gradient, S 18 mm Hg Valve area, Vmax 2.61 cm^2 Valve area index, Vmax 1.31 cm^2/m^2 Mitral valve Peak E-wave velocity 119 cm/s Peak A-wave velocity 91.8 cm/s Deceleration time *92 ms 150-230 Peak gradient, D 6 mm Hg Peak E/A ratio 1.3 Maximal regurgitant velocity 314 cm/s Tricuspid valve Regurgitant peak velocity 204 cm/s Peak RV-RA gradient, S 17 mm Hg Maximal regurgitant velocity 204 cm/s Systemic veins Estimated CVP 10 mm Hg Right ventricle RV pressure, S 27 mm Hg <30 LEGEND: Mean values are shown as u=mean value. Asterisk (*) castro values outside specified normal range. Amended Abimael Smith [id number]
[2016-12-11 11:44] LABS: BICARBONATE 33.8 MEQ/L (21.0-32.0); MAGNESIUM 2.3 MG/DL (1.5-2.5); POTASSIUM 3.8 MEQ/L (3.5-5.1)
[2016-12-11 11:58] LABS: BANDS 17 % (0-6); BASOPHILS 1 % (0-2); EOSINOPHILS 5 % (0-4); METAMYELOCYTES 1 % (0-1); MYELOCYTES 1 % (0-0); NEUTROPHIL # MANUAL DIFF 15.1 TH/MM3 (1.8-7.7); PLATELET ESTIMATE SMEAR HIGH (NORMAL); PLATELET MORPHOLOGY ENLARGED (NORMAL); POLYS (SEG NEUTROPHILS) 61 % (16-70); SCAN/DIFF FINAL DIFF MANUAL; WBC DIFF SAMPLE 100
[2016-12-11] MEDS: ENOXAPARIN SODIUM 40 MG/0.4 ML SYRINGE SQ SCH (12:42)
[2016-12-11] MEDS: VANCOMYCIN INJ 1,750 MG in SODIUM CHLOR 0.9% 250 ML INJ 250 ML IV SCH (12:42)
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
[2016-12-11] MEDS: LINEZOLID 600 MG PREMIX 300 ML IV SCH (18:19)
[2016-12-11 18:25] LABS: BACTERIA, URINE RARE /hpf; BLOOD, URINE LARGE (NEG); GLUCOSE,URINE NEG (NEG); KETONE, URINE NEG (NEG); MUCUS URINE FEW /lpf (OCC); NITRITE,URINE NEG (NEG); PH, URINE 5.5 (5.0-8.5); SQUAMOUS EPITHELIAL CELL URINE 12 /hpf (0-5); URINE COLOR YELLOW (YELLW/STRAW)
[2016-12-11 18:26] LABS: COMMENT (UR) CATH-CULTURE IND; CULTURE IF INDICATED CATH CULTURE IND
[2016-12-11] MEDS: CLINIMIX E 5/25 2000 mL- >42 mls/hr IV-CENTRAL SCH ×3 (20:33)
[2016-12-12] VITALS (20 sets, daily range): BP systolic 100–130; BP diastolic 55–69; PULSE 86–102; RESP 18–36; TEMP 99.3–100.8; O2SAT 92–97
[2016-12-12] MEDS: CHLORHEXIDINE GLUCONATE 2 % 1 PACK (2 CLOTHS) TOP SCH ×2 (03:27→20:28)
[2016-12-12] MEDS: PROPOFOL 1000 MG/100 ML IV SCH ×3 (03:59→18:28)
[2016-12-12] MEDS: fentaNYL 2,500 MCG/NS 250 ML IV SCH ×2 (04:03→19:52)
[2016-12-12 04:14] LABS: AUTOMATED NEUTROPHIL # 14.3 TH/MM3 (1.8-7.7); BASOPHIL # 0.2 TH/MM3 (0-0.2); BASOPHIL % 0.8 % (0.0-2.0); EOSINOPHIL # 1.4 TH/MM3 (0-0.4); HEMATOCRIT 27.8 % (35.0-46.0); LYMPH % 12.1 % (9.0-44.0); LYMPHOCYTE # 2.4 TH/MM3 (1.0-4.8); MEAN CELL VOLUME 90.1 FL (80.0-100.0); MEAN CORPUSCULAR HEMOGLOBIN 29.6 PG (27.0-34.0); MEAN CORPUSCULAR HGB CONC 32.9 % (32.0-36.0); NEUT % 73.1 % (16.0-70.0); PLATELET COUNT 519 TH/MM3 (150-450); RED BLOOD COUNT 3.08 MIL/MM3 (4.00-5.30); RED CELL DISTRIBUTION WIDTH 14.7 % (11.6-17.2); WHITE BLOOD COUNT 19.5 TH/MM3 (4.0-11.0)
[2016-12-12 04:17] LABS: HEMO FLAGS AUTO DIFF
[2016-12-12] MEDS: LINEZOLID 600 MG PREMIX 300 ML IV SCH ×2 (04:40→18:04)
[2016-12-12 04:45] LABS: ALKALINE PHOSPHATASE 177 U/L (45-117); ALT (GPT) 34 U/L (10-53)
[2016-12-12 04:49] LABS: ANION GAP 6 MEQ/L (5-15); AST (GOT) 52 U/L (15-37); BICARBONATE 35.4 MEQ/L (21.0-32.0); BLOOD UREA NITROGEN 17 MG/DL (7-18); CHLORIDE 97 MEQ/L (98-107); GLOMERULAR FILTRATION RATE 113 ML/MIN (>89); MAGNESIUM 2.2 MG/DL (1.5-2.5); POTASSIUM 3.7 MEQ/L (3.5-5.1); SODIUM (NA) 138 MEQ/L (136-145)
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
[2016-12-12] MEDS: INSULIN NovoLIN REGULAR SUPPLEMENTAL SCALE SQ SCH ×4 (05:51→23:26)
[2016-12-12 06:03] LABS: BLOOD GAS BASE EXCESS 9.3 mmol/L (-2-2); BLOOD GAS CARBOXYHEMOGLOBIN 1.3 % (0-4); BLOOD GAS HCO3 35 mmol/L (22-26); BLOOD GAS METHEMOGLOBIN 0.6 % (0-2); BLOOD GAS O2 HGB SATURATION 96 % (90-100); BLOOD GAS OXYGEN CONTENT 15.8 Vol % (12.0-20.0); BLOOD GAS PCO2 61 mmHg (38-42); BLOOD GAS PO2 102 mmHg (61-120); BLOOD GAS TOTAL HGB 11.6 G/DL (12.0-16.0); TEMP CORR TO 98.6
[2016-12-12 06:07] LABS: CRITICAL VALUE YES; DRAW SITE RT RADIAL; FIO2 60 %; OXYGEN DEVICE VENTILATOR
[2016-12-12 06:08] LABS: NUMBER OF ARTERIAL PUNCTURES 1; STAT NO; ULNAR PULSE PRESENT
[2016-12-12 06:55] LABS: BANDS 13 % (0-6); BASOPHILS 2 % (0-2); EOSINOPHILS 6 % (0-4); METAMYELOCYTES 4 % (0-1); MYELOCYTES 4 % (0-0); NEUTROPHIL # MANUAL DIFF 14.6 TH/MM3 (1.8-7.7); POLYS (SEG NEUTROPHILS) 54 % (16-70); WBC DIFF SAMPLE 100
[2016-12-12 06:57] LABS: PLATELET ESTIMATE SMEAR HIGH (NORMAL); PLATELET MORPHOLOGY NORMAL (NORMAL); SCAN/DIFF FINAL DIFF MANUAL
[2016-12-12] MEDS ORDERED: BISACODYL 10 MG SUPP RECTAL ONE (07:15)
[2016-12-12] MEDS: MEROPENEM INJ 1,000 MG in SODIUM CHLORIDE 0.9% INJ 100 ML IV SCH ×3 (08:59→23:26)
[2016-12-12] MEDS: CHLORHEXIDINE 0.12% (ORAL KIT) 15 ML CUP MT SCH ×2 (08:59→19:52)
[2016-12-12] MEDS: ARTIFICIAL TEARS OPTH SOLN 15 ML BTL EACH EYE SCH ×3 (08:59→16:24)
[2016-12-12] MEDS: PANTOPRAZOLE SODIUM 40 MG VIAL IV SCH (09:00)
[2016-12-12] MEDS: SODIUM CHLORIDE 0.9% FLUSH 5 ML FLUSH IV FLUSH SCH ×2 (09:00→19:52)
[2016-12-12] MEDS: FUROSEMIDE 20 MG/2 ML VIAL IV PUSH SCH (09:00)
[2016-12-12] MEDS: DOCUSATE SODIUM 100 MG/10 ML UDC OG SCH ×2 (09:00→19:52)
[2016-12-12] MEDS: RESP: ALBUTEROL 2.5 MG/IPRATROPIUM 0.5 MG NEB (PRN) INH (11:12)
[2016-12-12] MEDS: ENOXAPARIN SODIUM 40 MG/0.4 ML SYRINGE SQ SCH (12:01)
[2016-12-12 12:44] LABS: BLOOD GAS BASE EXCESS 10.6 mmol/L (-2-2); BLOOD GAS CARBOXYHEMOGLOBIN 1.7 % (0-4); BLOOD GAS HCO3 35 mmol/L (22-26); BLOOD GAS METHEMOGLOBIN 0.9 % (0-2); BLOOD GAS O2 HGB SATURATION 94 % (90-100); BLOOD GAS OXYGEN CONTENT 12.4 Vol % (12.0-20.0); BLOOD GAS PCO2 55 mmHg (38-42); BLOOD GAS PO2 83 mmHg (61-120); BLOOD GAS TOTAL HGB 9.4 G/DL (12.0-16.0); TEMP CORR TO 98.6
[2016-12-12 12:45] LABS: CRITICAL VALUE YES; DRAW SITE RT RADIAL; FIO2 60 %; NUMBER OF ARTERIAL PUNCTURES 1; OXYGEN DEVICE VENTILATOR; STAT NO; VENT SETTINGS A/C500/20/PEEP8+
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
[2016-12-12] MEDS: CLINIMIX E 5/25 2000 mL- >42 mls/hr IV-CENTRAL SCH ×3 (19:52)
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
[2016-12-13] VITALS (20 sets, daily range): BP systolic 111–130; BP diastolic 61–67; PULSE 85–111; RESP 20–28; TEMP 99–100.6; O2SAT 92–100
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
[2016-12-13] MEDS: LINEZOLID 600 MG PREMIX 300 ML IV SCH (04:58)
[2016-12-13] MEDS: ACETAMINOPHEN 1000 MG/100 ML VIAL IV PRN ×2 (04:58→18:19)
[2016-12-13] MEDS: PROPOFOL 1000 MG/100 ML IV SCH ×6 (04:58→23:58)
[2016-12-13] MEDS: INSULIN NovoLIN REGULAR SUPPLEMENTAL SCALE SQ SCH ×3 (05:25→18:00)
[2016-12-13 05:34] LABS: AUTOMATED NEUTROPHIL # 12.4 TH/MM3 (1.8-7.7); BASOPHIL # 0.3 TH/MM3 (0-0.2); BASOPHIL % 1.6 % (0.0-2.0); EOSINOPHIL # 1.4 TH/MM3 (0-0.4); EOSINOPHIL % 7.6 % (0.0-4.0); HEMATOCRIT 26.4 % (35.0-46.0); LYMPH % 13.8 % (9.0-44.0); LYMPHOCYTE # 2.5 TH/MM3 (1.0-4.8); MEAN CELL VOLUME 88.2 FL (80.0-100.0); MEAN CORPUSCULAR HEMOGLOBIN 30.1 PG (27.0-34.0); MEAN CORPUSCULAR HGB CONC 34.1 % (32.0-36.0); MONO % 8.7 % (0.0-8.0); NEUT % 68.3 % (16.0-70.0); PLATELET COUNT 537 TH/MM3 (150-450); RED BLOOD COUNT 2.99 MIL/MM3 (4.00-5.30); RED CELL DISTRIBUTION WIDTH 14.7 % (11.6-17.2); WHITE BLOOD COUNT 18.1 TH/MM3 (4.0-11.0)
[2016-12-13 05:49] LABS: BLOOD GAS BASE EXCESS 11.3 mmol/L (-2-2); BLOOD GAS CARBOXYHEMOGLOBIN 1.6 % (0-4); BLOOD GAS HCO3 36 mmol/L (22-26); BLOOD GAS METHEMOGLOBIN 0.7 % (0-2); BLOOD GAS O2 HGB SATURATION 94 % (90-100); BLOOD GAS OXYGEN CONTENT 14.5 Vol % (12.0-20.0); BLOOD GAS PCO2 53 mmHg (38-42); BLOOD GAS PO2 86 mmHg (61-120); BLOOD GAS TOTAL HGB 10.9 G/DL (12.0-16.0); TEMP CORR TO 98.6
[2016-12-13 05:50] LABS: CRITICAL VALUE YES; OXYGEN DEVICE VENTILATOR
[2016-12-13 05:51] LABS: DRAW SITE RT RADIAL; FIO2 60 %; NUMBER OF ARTERIAL PUNCTURES 1; STAT NO; ULNAR PULSE PRESENT
[2016-12-13 05:51] LABS: HEMO FLAGS AUTO DIFF
[2016-12-13 05:59] LABS: ANION GAP 7 MEQ/L (5-15); AST (GOT) 58 U/L (15-37); BLOOD UREA NITROGEN 14 MG/DL (7-18); CHLORIDE 95 MEQ/L (98-107); GLOMERULAR FILTRATION RATE 131 ML/MIN (>89); MAGNESIUM 2.2 MG/DL (1.5-2.5); POTASSIUM 3.5 MEQ/L (3.5-5.1); SODIUM (NA) 137 MEQ/L (136-145)
[2016-12-13 06:02] LABS: ALKALINE PHOSPHATASE 177 U/L (45-117); ALT (GPT) 29 U/L (10-53); TOTAL BILIRUBIN ADULT 0.9 MG/DL (0.2-1.0)
[2016-12-13] MEDS: POTASSIUM CL 40 MEQ/30 ML LIQ UDC PO/TUBE PRN (06:09)
[2016-12-13 06:45] LABS: BANDS 8 % (0-6); EOSINOPHILS 8 % (0-4); METAMYELOCYTES 1 % (0-1); NEUTROPHIL # MANUAL DIFF 14.7 TH/MM3 (1.8-7.7); POLYS (SEG NEUTROPHILS) 72 % (16-70); SCAN/DIFF FINAL DIFF MANUAL; WBC DIFF SAMPLE 100
[2016-12-13 06:46] LABS: PLATELET ESTIMATE SMEAR HIGH (NORMAL); PLATELET MORPHOLOGY NORMAL (NORMAL)
[2016-12-13] MEDS: CHLORHEXIDINE 0.12% (ORAL KIT) 15 ML CUP MT SCH ×2 (08:00→19:36)
[2016-12-13] MEDS: SODIUM CHLORIDE 0.9% FLUSH 5 ML FLUSH IV FLUSH SCH ×2 (09:00→19:36)
[2016-12-13] MEDS: ARTIFICIAL TEARS OPTH SOLN 15 ML BTL EACH EYE SCH ×3 (09:00→17:38)
[2016-12-13] MEDS: MEROPENEM INJ 1,000 MG in SODIUM CHLORIDE 0.9% INJ 100 ML IV SCH (09:05)
[2016-12-13] MEDS: DOCUSATE SODIUM 100 MG/10 ML UDC OG SCH ×2 (09:05→21:39)
[2016-12-13] MEDS: FUROSEMIDE 20 MG/2 ML VIAL IV PUSH SCH (09:05)
[2016-12-13] MEDS: PANTOPRAZOLE SODIUM 40 MG VIAL IV SCH (09:05)
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
--- NOTE | 2016-12-13 10:19 | RADRPT ---
EXAM DATE/TIME: 12/13/2016 08:54 [facility] COMPARISON: No previous studies available for comparison. INDICATIONS : Bilateral lower extremity edema. MEDICAL HISTORY : Hypothyroidism. Blood transfusion. Asthma. SURGICAL HISTORY : Hysterectomy.Cholecystectomy. Arthroscopy, bilateral knees. ENCOUNTER: Initial ACUITY: 1 day PAIN SCORE: Non-responsive LOCATION: Bilateral legs. TECHNIQUE: Venous ultrasound of the left and right leg was performed from the inguinal ligament t o the proximal calf. Real-time, color Doppler and spectral tracing, compression and augmentation albaro hniques were used. FINDINGS: RIGHT LEG: There is normal compressibility of the deep venous system from the inguinal region to the proximal calf. No echogenic clot is seen in the lumen of the common femoral, femoral, popliteal, and posterior tibial veins. There is a normal response of the venous system to proximal and distal augmentation and respiration. LEFT LEG: There is normal compressibility of the deep venous system from the inguinal region to t he proximal calf. No echogenic clot is seen in the lumen of the common femoral, femoral, popliteal, and posterior tibial veins. There is a normal response of the venous system to proximal and distal a ugmentation and respiration. CONCLUSION: Negative examination with no evidence DVT Osvaldo Toribio MD on December 13, 2016 at 10:16 Board Certified Radiologist. This report was verified electronically.
--- NOTE | 2016-12-13 10:23 | RADRPT ---
EXAM DATE/TIME: 12/13/2016 09:16 [facility] COMPARISON: No previous studies available for comparison. INDICATIONS : Bilateral upper extremity edema. MEDICAL HISTORY : Hypothyroidism. Blood transfusion. Asthma. SURGICAL HISTORY : Hysterectomy.Cholecystectomy. Arthroscopy, bilateral knees. ENCOUNTER: Initial ACUITY: 1 day PAIN SCORE: Non-responsive LOCATION: Bilateral arms. FINDINGS: RIGHT UPPER EXTREMITY: There is spontaneous flow documented in the brachial, basilic, cephalic, axillary, and subclavian vei ns. The vessels are compressible and augmentation response is documented. No filling defects are se en. The flow is phasic with respiration. Direction of flow in the jugular vein is caudal. LEFT UPPER EXTREMITY: There is spontaneous flow documented in the brachial, basilic, axillary, and subclavian veins. The v essels are compressible and augmentation response is documented. No filling defects are seen. The f low is phasic with respiration. Direction of flow in the jugular vein is caudal. Occlusive thrombus is noted in the left cephalic vein CONCLUSION: Occlusive thrombus left cephalic vein. Right upper extremity negative Osvaldo Toribio MD on December 13, 2016 at 10:20 Board Certified Radiologist. This report was verified electronically.
[2016-12-13] MEDS ORDERED: BUMETANIDE INJ 1 MG/4 ML VIAL IV PUSH ONE (10:30)
[2016-12-13] MEDS ORDERED: RESP: ALBUTEROL 2.5 MG/IPRATROPIUM 0.5 MG NEB (SCH) ONE (10:40)
[2016-12-13] MEDS ORDERED: PHARMACY ORDERED LAB XX ONE (10:45)
[2016-12-13] MEDS: RESP: ALBUTEROL 2.5 MG/IPRATROPIUM 0.5 MG NEB (PRN) NEB (11:21)
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
--- NOTE | 2016-12-13 11:24 | RADRPT ---
EXAM DATE/TIME: 12/13/2016 10:22 [facility] COMPARISON: ABDOMEN KUB ONLY, December 06, 2016, 20:52. CT ABDOMEN & PELVIS W CONTRAST, December 07, 2016, 11:34. INDICATIONS : Abdominal distention. MEDICAL HISTORY : Hypothyroidism. Blood transfusion. Asthma. SURGICAL HISTORY : Hysterectomy.Cholecystectomy. Arthroscopy, bilateral knees. ENCOUNTER: Subsequent ACUITY: 1 week PAIN SCORE: Non-responsive. LOCATION: Abdomen, all quadrants. FINDINGS: A nasogastric tube coils in the stomach. Midline skin ana are again noted. Occasional surgical cl ips are present in the abdomen. Metallic density fragments overlie the left upper abdomen. Intestinal gas pattern is nonspecific with gas present in a few nondilated bowel loops. Regional skeleton is gr ossly stable. CONCLUSION: Nonspecific benign abdomen appearance. Celestine Masterson MD on December 13, 2016 at 11:18 Board Certified Radiologist. This report was verified electronically.
[2016-12-13] MEDS: ENOXAPARIN SODIUM 40 MG/0.4 ML SYRINGE SQ SCH (11:36)
[2016-12-13] MEDS: LEVOFLOXACIN 500 MG TAB PO SCH (12:00)
[2016-12-13] MEDS ORDERED: LACTULOSE SYRUP 20 GM/30 ML CUP NG ONE (16:45)
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
[2016-12-13] MEDS: fentaNYL 2,500 MCG/NS 250 ML IV SCH (17:54)
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
[2016-12-13] MEDS ORDERED: MIDAZOLAM HCL 5 MG/ML VIAL (1 ML) ONE (20:52)
--- NOTE | 2016-12-13 21:19 | PD.PROCEDR ---
Procedure Note Procedure Central Venous Catheter (CVC, Central Line) Placement Date: 12/13 Time: 1999 Indication: Hemodynamic monitoring/Intravenous access A time-out was completed verifying correct patient, procedure, site, positioning , and special equipment if applicable. The patient was placed in a dependent position appropriate for central line placement based on the vein to be cannulated. The patients left shoulder was prepped and draped in sterile fashion. 1% Lidocaine was used to anesthetize the surrounding skin area. A triple lumen <9-Omani> Cordis catheter was introduced into the the subclavian using the Seldinger technique . The catheter was threaded smoothly over the guide wire and appropriate blood return was obtained. Each lumen of the catheter was evacuated of air and flushed with sterile saline. The catheter was then sutured in place to the skin and a sterile dressing applied. Perfusion to the extremity distal to the point of catheter insertion was checked and found to be adequate. Estimated Blood Loss: 1ml The patient tolerated the procedure well and there were no complications. Tuan Castellanos MD Dec 13, 2016 21:19
[2016-12-13] MEDS: CLINIMIX E 5/25 2000 mL- >42 mls/hr IV-CENTRAL SCH ×3 (21:38)
[2016-12-13] MEDS ORDERED: MIDAZOLAM HCL 5 MG/ML VIAL (1 ML) IV ONE (21:45)
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
[2016-12-14] VITALS (18 sets, daily range): BP systolic 98–132; BP diastolic 36–77; PULSE 80–118; RESP 20–35; TEMP 98.8–100.4; O2SAT 88–97
[2016-12-14] MEDS: POTASSIUM CHLOR 40 MEQ PREMIX 100 ML IV PRN ×2 (00:28→18:16)
[2016-12-14] MEDS: PROPOFOL 1000 MG/100 ML IV SCH ×4 (02:29→15:58)
[2016-12-14] MEDS: CHLORHEXIDINE GLUCONATE 2 % 1 PACK (2 CLOTHS) TOP SCH (04:46)
[2016-12-14 05:24] LABS: HEMATOCRIT 27.5 % (35.0-46.0); MEAN CELL VOLUME 89.1 FL (80.0-100.0); MEAN CORPUSCULAR HEMOGLOBIN 29.6 PG (27.0-34.0); MEAN CORPUSCULAR HGB CONC 33.2 % (32.0-36.0); PLATELET COUNT 548 TH/MM3 (150-450); RED BLOOD COUNT 3.09 MIL/MM3 (4.00-5.30); RED CELL DISTRIBUTION WIDTH 14.4 % (11.6-17.2); REVIEW FLAG FINAL; WHITE BLOOD COUNT 15.5 TH/MM3 (4.0-11.0)
[2016-12-14 05:51] LABS: BICARBONATE 38.3 MEQ/L (21.0-32.0); POTASSIUM 3.9 MEQ/L (3.5-5.1)
[2016-12-14] MEDS: INSULIN NovoLIN REGULAR SUPPLEMENTAL SCALE SQ SCH ×4 (06:00→17:24)
[2016-12-14] MEDS: CHLORHEXIDINE 0.12% (ORAL KIT) 15 ML CUP MT SCH ×2 (07:47→20:56)
[2016-12-14] MEDS: RESP: ALBUTEROL 2.5 MG/IPRATROPIUM 0.5 MG NEB (PRN) NEB ×2 (08:05→15:32)
[2016-12-14] MEDS ORDERED: BISACODYL 10 MG SUPP RECTAL ONE (08:30)
[2016-12-14] MEDS: LACTULOSE SYRUP 20 GM/30 ML CUP PO SCH (09:00)
[2016-12-14] MEDS: FUROSEMIDE 20 MG/2 ML VIAL IV PUSH SCH (09:00)
[2016-12-14] MEDS ORDERED: LEVOFLOXACIN 500 MG TAB PO SCH (09:00)
[2016-12-14] MEDS: ARTIFICIAL TEARS OPTH SOLN 15 ML BTL EACH EYE SCH ×3 (09:00→17:24)
[2016-12-14] MEDS: DOCUSATE SODIUM 100 MG/10 ML UDC OG SCH ×2 (09:00→20:56)
[2016-12-14] MEDS: SODIUM CHLORIDE 0.9% FLUSH 5 ML FLUSH IV FLUSH SCH ×2 (09:00→20:56)
[2016-12-14] MEDS: PANTOPRAZOLE SODIUM 40 MG VIAL IV SCH (09:00)
[2016-12-14] MEDS: LEVOFLOXACIN 500 MG TAB PO SCH (09:00)
[2016-12-14] MEDS ORDERED: BUMETANIDE INJ 1 MG/4 ML VIAL IV PUSH ONE (09:45)
[2016-12-14] MEDS: ENOXAPARIN SODIUM 40 MG/0.4 ML SYRINGE SQ SCH (11:00)
[2016-12-14] MEDS: ONDANSETRON HCL 4 MG/2 ML VIAL IV PRN (12:15)
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
[2016-12-14] MEDS: CLINIMIX E 5/25 2000 mL- >42 mls/hr IV-CENTRAL SCH ×3 (20:56)
[2016-12-15] VITALS (17 sets, daily range): BP systolic 96–136; BP diastolic 53–77; PULSE 87–110; RESP 12–26; TEMP 98.2–100; O2SAT 90–98
[2016-12-15] MEDS: PROPOFOL 1000 MG/100 ML IV SCH ×5 (02:12→21:10)
[2016-12-15] MEDS: CHLORHEXIDINE GLUCONATE 2 % 1 PACK (2 CLOTHS) TOP SCH (03:45)
[2016-12-15 03:54] LABS: HEMATOCRIT 26.5 % (35.0-46.0); MEAN CELL VOLUME 88.1 FL (80.0-100.0); MEAN CORPUSCULAR HGB CONC 34.1 % (32.0-36.0); PLATELET COUNT 529 TH/MM3 (150-450); RED BLOOD COUNT 3.01 MIL/MM3 (4.00-5.30); RED CELL DISTRIBUTION WIDTH 14.2 % (11.6-17.2); REVIEW FLAG FINAL
[2016-12-15 04:13] LABS: BICARBONATE 36.9 MEQ/L (21.0-32.0); POTASSIUM 3.2 MEQ/L (3.5-5.1)
[2016-12-15] MEDS: POTASSIUM CHLOR 40 MEQ PREMIX 100 ML IV PRN ×2 (05:15→08:18)
[2016-12-15 05:35] LABS: BLOOD GAS CARBOXYHEMOGLOBIN 2.1 % (0-4); BLOOD GAS HCO3 36 mmol/L (22-26); BLOOD GAS METHEMOGLOBIN 0.7 % (0-2); BLOOD GAS O2 HGB SATURATION 92 % (90-100); BLOOD GAS OXYGEN CONTENT 12.1 Vol % (12.0-20.0); BLOOD GAS PCO2 45 mmHg (38-42); BLOOD GAS PO2 73 mmHg (61-120); BLOOD GAS TOTAL HGB 9.3 G/DL (12.0-16.0); TEMP CORR TO 98.6
[2016-12-15 05:37] LABS: CRITICAL VALUE YES; DRAW SITE LT RADIAL; FIO2 40 %; NUMBER OF ARTERIAL PUNCTURES 1; OXYGEN DEVICE VENTILATOR; STAT NO; ULNAR PULSE PRESENT; VENT SETTINGS AC20/500/10PEEP
[2016-12-15] MEDS: INSULIN NovoLIN REGULAR SUPPLEMENTAL SCALE SQ SCH ×4 (06:00→17:17)
--- NOTE | 2016-12-15 06:30 | RADRPT ---
EXAM DATE/TIME: 12/15/2016 05:35 [facility] COMPARISON: CHEST SINGLE AP, December 13, 2016, 21:36. INDICATIONS : Evaluate after respiratory failure. MEDICAL HISTORY : asthma, hypothyroidism SURGICAL HISTORY : Hysterectomy.Cholecystectomy. Arthroscopy, bilateral knees. ENCOUNTER: Subsequent ACUITY: 3 weeks PAIN SCORE: Non-responsive. LOCATION: Bilateral chest FINDINGS: Large left effusion and left lung consolidation. Tracheostomy tube and right subclavian line identifi ed. The tip of the catheter overlies the expected location of the right atrium. The right lung is mily ar. CONCLUSION: Improved aeration on the right otherwise stable. Leno Goddard MD on December 15, 2016 at 6:28 Board Certified Radiologist. This report was verified electronically.
[2016-12-15] MEDS: LEVOFLOXACIN 500 MG TAB PO SCH (08:17)
[2016-12-15] MEDS: PANTOPRAZOLE SODIUM 40 MG VIAL IV SCH (08:17)
[2016-12-15] MEDS: CHLORHEXIDINE 0.12% (ORAL KIT) 15 ML CUP MT SCH ×2 (08:17→20:00)
[2016-12-15] MEDS: LACTULOSE SYRUP 20 GM/30 ML CUP PO SCH (08:17)
[2016-12-15] MEDS: ARTIFICIAL TEARS OPTH SOLN 15 ML BTL EACH EYE SCH ×3 (08:17→17:17)
[2016-12-15] MEDS: DOCUSATE SODIUM 100 MG/10 ML UDC OG SCH ×2 (08:17→21:09)
[2016-12-15] MEDS: SODIUM CHLORIDE 0.9% FLUSH 5 ML FLUSH IV FLUSH SCH ×2 (09:00→21:09)
[2016-12-15] MEDS ORDERED: ALTEPLASE RECOMBINANT 2 MG VIAL INTRACATH ONE (09:15)
[2016-12-15] MEDS: fentaNYL 2,500 MCG/NS 250 ML IV SCH (09:32)
[2016-12-15] MEDS: ENOXAPARIN SODIUM 40 MG/0.4 ML SYRINGE SQ SCH (10:37)
[2016-12-15] MEDS ORDERED: BISACODYL 10 MG SUPP RECTAL ONE (10:45)
[2016-12-15] MEDS ORDERED: BUMETANIDE INJ 1 MG/4 ML VIAL IV PUSH ONE (10:45)
--- NOTE | 2016-12-15 11:53 | HHI.IDPN ---
Note Infectious Disease Note Persistent low grade fevers ? SIRS related. CXR with infiltrates, sputum and other cultures negative. Patient has vomiting off and on please consider Reglan or Erythromycin as pro- motility agent if ok with Will sign off please call back if any change in clinical condition or questions. Vital Signs Date Time Temp Pulse Resp B/P Pulse Ox O2 Delivery O2 Flow Rate FiO2 12/15/16 10:00 97 12/15/16 08:55 92 40 12/15/16 08:00 102 12/15/16 08:00 40 12/15/16 08:00 99.5 102 20 124/65 93 12/15/16 06:00 103 12/15/16 04:11 94 40 12/15/16 04:00 90 12/15/16 04:00 99.7 90 20 96/53 90 12/15/16 04:00 40 12/15/16 02:00 104 12/15/16 00:00 110 12/15/16 00:00 100.0 110 21 136/74 95 12/15/16 00:00 40 12/15/16 00:00 94 40 12/14/16 22:00 109 12/14/16 20:00 40 12/14/16 20:00 99.3 103 22 125/77 96 12/14/16 20:00 103 12/14/16 18:00 102 12/14/16 16:00 50 12/14/16 16:00 106 12/14/16 16:00 99.3 106 26 115/66 91 12/14/16 15:32 97 40 12/14/16 15:32 40 12/14/16 14:00 100 12/14/16 12:00 100.4 118 24 132/71 91 12/14/16 12:00 50 12/14/16 12:00 118 Laboratory Tests Test 12/14/16 12/15/16 12/15/16 17:00 03:39 05:24 Potassium Level 3.3 MEQ/L 3.2 MEQ/L White Blood Count 16.0 TH/MM3 Red Blood Count 3.01 MIL/MM3 Hemoglobin 9.0 GM/DL Hematocrit 26.5 % Mean Corpuscular Volume 88.1 FL Mean Corpuscular Hemoglobin 30.0 PG Mean Corpuscular Hemoglobin 34.1 % Concent Red Cell Distribution Width 14.2 % Platelet Count 529 TH/MM3 Mean Platelet Volume 8.4 FL Sodium Level 136 MEQ/L Chloride Level 94 MEQ/L Carbon Dioxide Level 36.9 MEQ/L Anion Gap 5 MEQ/L Blood Urea Nitrogen 15 MG/DL Creatinine 0.59 MG/DL Estimat Glomerular Filtration 111 ML/MIN Rate Random Glucose 98 MG/DL Calcium Level 8.3 MG/DL Magnesium Level 2.0 MG/DL Blood Gas Puncture Site LT RADIAL Blood Gas Patient Temperature 98.6 Blood Gas HCO3 36 mmol/L Blood Gas Base Excess 12.0 mmol/L Blood Gas Oxygen Saturation 92 % Arterial Blood pH 7.51 Arterial Blood Partial 45 mmHg Pressure CO2 Arterial Blood Partial 73 mmHg Pressure O2 Arterial Blood Oxygen Content 12.1 Vol % Arterial Blood 2.1 % Carboxyhemoglobin Arterial Blood Methemoglobin 0.7 % Blood Gas Hemoglobin 9.3 G/DL Oxygen Delivery Device VENTILATOR Blood Gas Ventilator Setting AC20/500/10PEEP Blood Gas Inspired Oxygen 40 % Alejandra Lee MD Dec 15, 2016 11:53
[2016-12-15] MEDS: ONDANSETRON HCL 4 MG/2 ML VIAL IV PRN (13:45)
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
[2016-12-15] MEDS: CLINIMIX E 5/25 2000 mL- >42 mls/hr IV-CENTRAL SCH ×3 (21:10)
[2016-12-16] VITALS (17 sets, daily range): BP systolic 114–133; BP diastolic 68–77; PULSE 82–108; RESP 20–26; TEMP 98.2–99.7; O2SAT 96–100
[2016-12-16] MEDS: CHLORHEXIDINE GLUCONATE 2 % 1 PACK (2 CLOTHS) TOP SCH (04:00)
[2016-12-16 05:30] LABS: BLOOD GAS BASE EXCESS 8.6 mmol/L (-2-2); BLOOD GAS CARBOXYHEMOGLOBIN 1.6 % (0-4); BLOOD GAS HCO3 32 mmol/L (22-26); BLOOD GAS METHEMOGLOBIN 0.7 % (0-2); BLOOD GAS O2 HGB SATURATION 95 % (90-100); BLOOD GAS OXYGEN CONTENT 17.1 Vol % (12.0-20.0); BLOOD GAS PCO2 38 mmHg (38-42); BLOOD GAS PO2 90 mmHg (61-120); BLOOD GAS TOTAL HGB 12.7 G/DL (12.0-16.0); CRITICAL VALUE YES; TEMP CORR TO 98.6
[2016-12-16 05:31] LABS: DRAW SITE RT RADIAL; FIO2 40 %; NUMBER OF ARTERIAL PUNCTURES 1; OXYGEN DEVICE VENTILATOR; STAT NO; ULNAR PULSE PRESENT; VENT SETTINGS PRVC/AC
--- NOTE | 2016-12-16 05:44 | RADRPT ---
EXAM DATE/TIME: 12/16/2016 05:00 [facility] COMPARISON: CHEST SINGLE AP, December 15, 2016, 5:35. INDICATIONS : Evaluate after Respiratory failure. MEDICAL HISTORY : asthma, hypothyroidism SURGICAL HISTORY : Hysterectomy. Cholecystectomy. Arthroscopy, bilateral knees ENCOUNTER: Subsequent ACUITY: 3 weeks PAIN SCORE: Non-responsive. LOCATION: Bilateral chest FINDINGS: Tracheostomy tube and enteric tube are noted. Left-sided pleural effusion and left lower lobe consoli dation is seen. The right lung is clear. Right subclavian line tip overlies the SVC. CONCLUSION: Improved aeration of the left lung however consolidation and effusion remain. Leno Goddard MD on December 16, 2016 at 5:42 Board Certified Radiologist. This report was verified electronically.
[2016-12-16 06:45] LABS: AUTOMATED NEUTROPHIL # 9.9 TH/MM3 (1.8-7.7); BASOPHIL # 0.2 TH/MM3 (0-0.2); BASOPHIL % 1.1 % (0.0-2.0); EOSINOPHIL # 1.4 TH/MM3 (0-0.4); EOSINOPHIL % 8.2 % (0.0-4.0); HEMATOCRIT 27.4 % (35.0-46.0); LYMPH % 22.2 % (9.0-44.0); LYMPHOCYTE # 3.7 TH/MM3 (1.0-4.8); MEAN CELL VOLUME 88.5 FL (80.0-100.0); MEAN CORPUSCULAR HEMOGLOBIN 29.4 PG (27.0-34.0); MEAN CORPUSCULAR HGB CONC 33.2 % (32.0-36.0); MONO % 9.3 % (0.0-8.0); NEUT % 59.2 % (16.0-70.0); PLATELET COUNT 497 TH/MM3 (150-450); RED BLOOD COUNT 3.09 MIL/MM3 (4.00-5.30); RED CELL DISTRIBUTION WIDTH 14.7 % (11.6-17.2); WHITE BLOOD COUNT 16.7 TH/MM3 (4.0-11.0)
[2016-12-16 07:24] LABS: HEMO FLAGS AUTO DIFF
[2016-12-16] MEDS: CHLORHEXIDINE 0.12% (ORAL KIT) 15 ML CUP MT SCH ×2 (08:00→20:29)
[2016-12-16] MEDS: ONDANSETRON HCL 4 MG/2 ML VIAL IV PRN (08:00)
[2016-12-16] MEDS: LACTULOSE SYRUP 20 GM/30 ML CUP PO SCH (09:00)
[2016-12-16] MEDS: DOCUSATE SODIUM 100 MG/10 ML UDC OG SCH ×2 (09:00→20:29)
[2016-12-16] MEDS: ARTIFICIAL TEARS OPTH SOLN 15 ML BTL EACH EYE SCH ×3 (09:00→17:39)
[2016-12-16 09:10] LABS: BICARBONATE 30.7 MEQ/L (21.0-32.0); POTASSIUM 3.4 MEQ/L (3.5-5.1)
[2016-12-16] MEDS: SODIUM CHLORIDE 0.9% FLUSH 5 ML FLUSH IV FLUSH SCH ×2 (09:29→20:29)
[2016-12-16] MEDS: LEVOFLOXACIN 500 MG TAB PO SCH (09:29)
[2016-12-16] MEDS: PANTOPRAZOLE SODIUM 40 MG VIAL IV SCH (09:30)
[2016-12-16 09:45] LABS: BANDS 13 % (0-6); EOSINOPHILS 7 % (0-4); METAMYELOCYTES 1 % (0-1); NEUTROPHIL # MANUAL DIFF 11.2 TH/MM3 (1.8-7.7); POLYS (SEG NEUTROPHILS) 53 % (16-70); WBC DIFF SAMPLE 100
[2016-12-16 09:46] LABS: PLATELET ESTIMATE SMEAR HIGH (NORMAL); PLATELET MORPHOLOGY NORMAL (NORMAL); SCAN/DIFF FINAL DIFF MANUAL
[2016-12-16] MEDS: ENOXAPARIN SODIUM 40 MG/0.4 ML SYRINGE SQ SCH (10:22)
[2016-12-16] MEDS: BUMETANIDE INJ 1 MG/4 ML VIAL IV PUSH SCH (10:27)
[2016-12-16] MEDS: POTASSIUM CHLOR 20 MEQ PREMIX 100 ML IV PRN (10:29)
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
[2016-12-16] MEDS: INSULIN NovoLIN REGULAR SUPPLEMENTAL SCALE SQ SCH ×2 (11:48→17:39)
[2016-12-16] MEDS: ERYTHROMYCIN INJ 250 MG in SODIUM CHLORIDE 0.9% INJ 100 ML IV SCH ×3 (11:49→23:41)
[2016-12-16] MEDS: PROPOFOL 1000 MG/100 ML IV SCH ×3 (12:33→21:14)
[2016-12-16] MEDS: fentaNYL 2,500 MCG/NS 250 ML IV SCH (18:18)
[2016-12-16] MEDS: CLINIMIX E 5/25 2000 mL- >42 mls/hr IV-CENTRAL SCH ×3 (20:37)
[2016-12-16] MEDS ORDERED: POTASSIUM CHLORIDE 20 MEQ CONTROLLED RELEASE TAB PO SCH (21:00)
[2016-12-17] VITALS (18 sets, daily range): BP systolic 95–168; BP diastolic 54–90; PULSE 83–103; RESP 17–35; TEMP 98.6–99.3; O2SAT 96–100
[2016-12-17] MEDS: PROPOFOL 1000 MG/100 ML IV SCH ×5 (02:53→23:49)
[2016-12-17] MEDS: CHLORHEXIDINE GLUCONATE 2 % 1 PACK (2 CLOTHS) TOP SCH (04:00)
[2016-12-17 05:17] LABS: BLOOD GAS BASE EXCESS 5.9 mmol/L (-2-2); BLOOD GAS CARBOXYHEMOGLOBIN 1.7 % (0-4); BLOOD GAS HCO3 29 mmol/L (22-26); BLOOD GAS METHEMOGLOBIN 0.7 % (0-2); BLOOD GAS O2 HGB SATURATION 96 % (90-100); BLOOD GAS OXYGEN CONTENT 12.9 Vol % (12.0-20.0); BLOOD GAS PCO2 39 mmHg (38-42); BLOOD GAS PO2 102 mmHg (61-120); BLOOD GAS TOTAL HGB 9.5 G/DL (12.0-16.0); CRITICAL VALUE NO; OXYGEN DEVICE VENTILATOR; TEMP CORR TO 98.6
[2016-12-17 05:18] LABS: DRAW SITE RT RADIAL; FIO2 40 %; NUMBER OF ARTERIAL PUNCTURES 1; STAT NO; ULNAR PULSE PRESENT; VENT SETTINGS AC/20/500/PEEP8
[2016-12-17] MEDS: INSULIN NovoLIN REGULAR SUPPLEMENTAL SCALE SQ SCH ×5 (06:00→23:14)
--- NOTE | 2016-12-17 06:05 | RADRPT ---
EXAM DATE/TIME: 12/17/2016 05:02 [facility] COMPARISON: CHEST SINGLE AP, December 16, 2016, 5:00. INDICATIONS : Shortness of breath, possible pulmonary disease. MEDICAL HISTORY : Hypothyroidism. Asthma SURGICAL HISTORY : Hysterectomy. Cholecystectomy. ENCOUNTER: Subsequent ACUITY: 3 weeks PAIN SCORE: Non-responsive. LOCATION: Bilateral chest FINDINGS: Tracheostomy tube, right subclavian line has been discharged tubes are again noted. Rods and skin sta ples are seen. Left lower lobe consolidation and effusion anteri lesser extent patchy right lung dise ase identified. CONCLUSION: No significant change has occurred. Leno Goddard MD on December 17, 2016 at 6:03 Board Certified Radiologist. This report was verified electronically.
[2016-12-17] MEDS: ERYTHROMYCIN INJ 250 MG in SODIUM CHLORIDE 0.9% INJ 100 ML IV SCH ×4 (06:06→23:05)
[2016-12-17] MEDS ORDERED: LACTULOSE SYRUP 20 GM/30 ML CUP PO PRN (08:00)
[2016-12-17] MEDS: CHLORHEXIDINE 0.12% (ORAL KIT) 15 ML CUP MT SCH ×2 (08:00→19:30)
[2016-12-17] MEDS: DOCUSATE SODIUM 100 MG/10 ML UDC OG SCH ×2 (09:36→19:30)
[2016-12-17] MEDS: PANTOPRAZOLE SODIUM 40 MG VIAL IV SCH (09:36)
[2016-12-17] MEDS: SODIUM CHLORIDE 0.9% FLUSH 5 ML FLUSH IV FLUSH SCH ×2 (09:36→19:31)
[2016-12-17] MEDS: LEVOFLOXACIN 500 MG TAB PO SCH (09:36)
[2016-12-17] MEDS: BUMETANIDE INJ 1 MG/4 ML VIAL IV PUSH SCH (09:36)
[2016-12-17] MEDS: ARTIFICIAL TEARS OPTH SOLN 15 ML BTL EACH EYE SCH ×3 (09:37→18:19)
[2016-12-17] MEDS: ENOXAPARIN SODIUM 40 MG/0.4 ML SYRINGE SQ SCH (09:37)
[2016-12-17] MEDS ORDERED: POTASSIUM CL 40 MEQ/30 ML LIQ UDC NG SCH ×2 (10:15→21:00)
[2016-12-17 11:07] LABS: BASOPHIL # 0.2 TH/MM3 (0-0.2); BASOPHIL % 1.4 % (0.0-2.0); HEMATOCRIT 29.4 % (35.0-46.0); LYMPH % 17.8 % (9.0-44.0); MEAN CELL VOLUME 89.2 FL (80.0-100.0); MEAN CORPUSCULAR HEMOGLOBIN 30.5 PG (27.0-34.0); MEAN CORPUSCULAR HGB CONC 34.2 % (32.0-36.0); MONO % 9.2 % (0.0-8.0); NEUT % 59.6 % (16.0-70.0); PLATELET COUNT 523 TH/MM3 (150-450); RED CELL DISTRIBUTION WIDTH 15.2 % (11.6-17.2); WHITE BLOOD COUNT 16.7 TH/MM3 (4.0-11.0)
[2016-12-17 11:08] LABS: HEMO FLAGS AUTO DIFF
[2016-12-17 11:22] LABS: ALKALINE PHOSPHATASE 188 U/L (45-117); ALT (GPT) 77 U/L (10-53); ANION GAP 8 MEQ/L (5-15); AST (GOT) 105 U/L (15-37); BICARBONATE 31.2 MEQ/L (21.0-32.0); BLOOD UREA NITROGEN 22 MG/DL (7-18); CHLORIDE 96 MEQ/L (98-107); GLOMERULAR FILTRATION RATE 79 ML/MIN (>89); MAGNESIUM 2.2 MG/DL (1.5-2.5); POTASSIUM 3.4 MEQ/L (3.5-5.1); SODIUM (NA) 135 MEQ/L (136-145)
[2016-12-17 11:48] LABS: BANDS 15 % (0-6); BASOPHILS 1 % (0-2); EOSINOPHILS 8 % (0-4); METAMYELOCYTES 1 % (0-1); MYELOCYTES 1 % (0-0); PLATELET ESTIMATE SMEAR HIGH (NORMAL); PLATELET MORPHOLOGY NORMAL (NORMAL); POLYS (SEG NEUTROPHILS) 55 % (16-70); SCAN/DIFF FINAL DIFF MANUAL; WBC DIFF SAMPLE 100
[2016-12-17] MEDS: POTASSIUM CL 40 MEQ/30 ML LIQ UDC PO/TUBE PRN (11:59)
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
[2016-12-17] MEDS: ONDANSETRON HCL 4 MG/2 ML VIAL IV PRN (13:17)
[2016-12-17] MEDS: fentaNYL 2,500 MCG/NS 250 ML IV SCH (14:55)
[2016-12-17] MEDS: POTASSIUM CHLOR 20 MEQ PREMIX 100 ML IV PRN (16:07)
[2016-12-17] MEDS: CLINIMIX E 5/25 2000 mL- >42 mls/hr IV-CENTRAL SCH ×3 (19:29)
[2016-12-18] VITALS (19 sets, daily range): BP systolic 100–124; BP diastolic 56–70; PULSE 16–110; RESP 15–22; TEMP 97.9–99; O2SAT 92–100
[2016-12-18] MEDS: CHLORHEXIDINE GLUCONATE 2 % 1 PACK (2 CLOTHS) TOP SCH (03:16)
[2016-12-18 03:56] LABS: BLOOD GAS BASE EXCESS 4.9 mmol/L (-2-2); BLOOD GAS CARBOXYHEMOGLOBIN 1.7 % (0-4); BLOOD GAS HCO3 29 mmol/L (22-26); BLOOD GAS METHEMOGLOBIN 0.7 % (0-2); BLOOD GAS O2 HGB SATURATION 94 % (90-100); BLOOD GAS OXYGEN CONTENT 12.6 Vol % (12.0-20.0); BLOOD GAS PCO2 47 mmHg (38-42); BLOOD GAS PO2 85 mmHg (61-120); BLOOD GAS TOTAL HGB 9.5 G/DL (12.0-16.0); TEMP CORR TO 98.6
[2016-12-18 03:57] LABS: CRITICAL VALUE NO; DRAW SITE RT RADIAL; FIO2 40 %; NUMBER OF ARTERIAL PUNCTURES 1; OXYGEN DEVICE VENTILATOR; STAT NO; ULNAR PULSE PRESENT; VENT SETTINGS AC/10/500/PEEP5
[2016-12-18] MEDS: PROPOFOL 1000 MG/100 ML IV SCH (04:12)
[2016-12-18] MEDS: ERYTHROMYCIN INJ 250 MG in SODIUM CHLORIDE 0.9% INJ 100 ML IV SCH (04:12)
[2016-12-18] MEDS: fentaNYL 2,500 MCG/NS 250 ML IV SCH (04:12)
[2016-12-18 04:38] LABS: AUTOMATED NEUTROPHIL # 7.2 TH/MM3 (1.8-7.7); BASOPHIL # 0.2 TH/MM3 (0-0.2); BASOPHIL % 1.5 % (0.0-2.0); EOSINOPHIL # 2.2 TH/MM3 (0-0.4); EOSINOPHIL % 15.8 % (0.0-4.0); HEMATOCRIT 26.7 % (35.0-46.0); LYMPH % 19.9 % (9.0-44.0); LYMPHOCYTE # 2.8 TH/MM3 (1.0-4.8); MEAN CELL VOLUME 89.3 FL (80.0-100.0); MEAN CORPUSCULAR HEMOGLOBIN 30.3 PG (27.0-34.0); MEAN CORPUSCULAR HGB CONC 33.9 % (32.0-36.0); MONO % 11.1 % (0.0-8.0); NEUT % 51.7 % (16.0-70.0); PLATELET COUNT 462 TH/MM3 (150-450); RED BLOOD COUNT 2.99 MIL/MM3 (4.00-5.30); RED CELL DISTRIBUTION WIDTH 15.1 % (11.6-17.2)
[2016-12-18 04:41] LABS: HEMO FLAGS AUTO DIFF
[2016-12-18 05:15] LABS: ALKALINE PHOSPHATASE 163 U/L (45-117); ALT (GPT) 94 U/L (10-53); ANION GAP 5 MEQ/L (5-15); AST (GOT) 115 U/L (15-37); BICARBONATE 31.8 MEQ/L (21.0-32.0); BLOOD UREA NITROGEN 24 MG/DL (7-18); CHLORIDE 101 MEQ/L (98-107); GLOMERULAR FILTRATION RATE 105 ML/MIN (>89); MAGNESIUM 2.2 MG/DL (1.5-2.5); POTASSIUM 4.2 MEQ/L (3.5-5.1); SODIUM (NA) 138 MEQ/L (136-145); TOTAL BILIRUBIN ADULT 0.8 MG/DL (0.2-1.0)
--- NOTE | 2016-12-18 05:38 | RADRPT ---
EXAM DATE/TIME: 12/18/2016 04:34 [facility] COMPARISON: CHEST SINGLE AP, December 17, 2016, 5:02. INDICATIONS : Shortness of breath, possible pulmonary disease. MEDICAL HISTORY : Hypothyroidism. Asthma SURGICAL HISTORY : Hysterectomy. Cholecystectomy. ENCOUNTER: Subsequent ACUITY: 3 weeks PAIN SCORE: Non-responsive. LOCATION: Bilateral chest FINDINGS: Left greater than right basilar consolidation developing. There is a small to moderate left pleural e ffusion, increased. No pneumothorax seen. Mild cardiomegaly is stable. Trach are again noted. There is a nasogastric tube with tip in the stomach. Right subclavian central venous catheter again seen, tip in the right atrium. CONCLUSION: Worsening bibasilar consolidation and left effusion. Celestine Solomon MD on December 18, 2016 at 5:36 Board Certified Radiologist. This report was verified electronically.
[2016-12-18] MEDS: INSULIN NovoLIN REGULAR SUPPLEMENTAL SCALE SQ SCH ×3 (06:00→17:14)
[2016-12-18 06:27] LABS: BANDS 18 % (0-6); EOSINOPHILS 17 % (0-4); METAMYELOCYTES 3 % (0-1); MYELOCYTES 1 % (0-0); NEUTROPHIL # MANUAL DIFF 8.5 TH/MM3 (1.8-7.7); PLATELET ESTIMATE SMEAR NORMAL (NORMAL); PLATELET MORPHOLOGY NORMAL (NORMAL); POLYS (SEG NEUTROPHILS) 39 % (16-70); SCAN/DIFF FINAL DIFF MANUAL; WBC DIFF SAMPLE 100
[2016-12-18] MEDS: CHLORHEXIDINE 0.12% (ORAL KIT) 15 ML CUP MT SCH ×2 (08:00→19:56)
[2016-12-18] MEDS: ARTIFICIAL TEARS OPTH SOLN 15 ML BTL EACH EYE SCH ×3 (09:28→17:15)
[2016-12-18] MEDS: PANTOPRAZOLE SODIUM 40 MG VIAL IV SCH (09:28)
[2016-12-18] MEDS: BUMETANIDE INJ 1 MG/4 ML VIAL IV PUSH SCH (09:28)
[2016-12-18] MEDS: LEVOFLOXACIN 500 MG TAB PO SCH (09:28)
[2016-12-18] MEDS: SODIUM CHLORIDE 0.9% FLUSH 5 ML FLUSH IV FLUSH SCH ×2 (09:31→21:53)
[2016-12-18] MEDS: DOCUSATE SODIUM 100 MG/10 ML UDC OG SCH (09:32)
[2016-12-18] MEDS: ONDANSETRON HCL 4 MG/2 ML VIAL IV PRN ×2 (10:40→18:59)
[2016-12-18] MEDS: ENOXAPARIN SODIUM 40 MG/0.4 ML SYRINGE SQ SCH (12:26)
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
[2016-12-18] MEDS: CLINIMIX E 5/25 2000 mL- >42 mls/hr IV-CENTRAL SCH ×3 (19:56)
[2016-12-18] MEDS: MAGNESIUM HYDROXIDE SUSP 30 ML CUP PO SCH (21:53)
[2016-12-18] MEDS: DOCUSATE SODIUM 50 MG/SENNA 8.6 MG TAB PO SCH (21:53)
[2016-12-19] VITALS (21 sets, daily range): BP systolic 111–136; BP diastolic 66–77; PULSE 78–106; RESP 15–36; TEMP 97.7–98.8; O2SAT 93–100
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
[2016-12-19] MEDS: CHLORHEXIDINE GLUCONATE 2 % 1 PACK (2 CLOTHS) TOP SCH (04:00)
[2016-12-19 05:51] LABS: AUTOMATED NEUTROPHIL # 11.3 TH/MM3 (1.8-7.7); BASOPHIL # 0.2 TH/MM3 (0-0.2); BASOPHIL % 1.1 % (0.0-2.0); EOSINOPHIL # 0.8 TH/MM3 (0-0.4); HEMATOCRIT 27.9 % (35.0-46.0); HEMO FLAGS DIFF FINAL; LYMPHOCYTE # 2.8 TH/MM3 (1.0-4.8); MEAN CELL VOLUME 88.5 FL (80.0-100.0); MEAN CORPUSCULAR HEMOGLOBIN 29.9 PG (27.0-34.0); MEAN CORPUSCULAR HGB CONC 33.7 % (32.0-36.0); MONO % 8.1 % (0.0-8.0); NEUT % 68.8 % (16.0-70.0); PLATELET COUNT 433 TH/MM3 (150-450); RED BLOOD COUNT 3.15 MIL/MM3 (4.00-5.30); WHITE BLOOD COUNT 16.4 TH/MM3 (4.0-11.0)
[2016-12-19 06:26] LABS: ANION GAP 6 MEQ/L (5-15); AST (GOT) 112 U/L (15-37); BICARBONATE 31.4 MEQ/L (21.0-32.0); BLOOD UREA NITROGEN 21 MG/DL (7-18); CHLORIDE 101 MEQ/L (98-107); GLOMERULAR FILTRATION RATE 109 ML/MIN (>89); MAGNESIUM 2.1 MG/DL (1.5-2.5); POTASSIUM 3.5 MEQ/L (3.5-5.1); SODIUM (NA) 138 MEQ/L (136-145)
[2016-12-19 06:31] LABS: ALKALINE PHOSPHATASE 157 U/L (45-117); ALT (GPT) 115 U/L (10-53); TOTAL BILIRUBIN ADULT 0.6 MG/DL (0.2-1.0)
[2016-12-19] MEDS: CHLORHEXIDINE 0.12% (ORAL KIT) 15 ML CUP MT SCH ×2 (08:00→20:00)
[2016-12-19] MEDS: SODIUM CHLORIDE 0.9% FLUSH 5 ML FLUSH IV FLUSH SCH ×2 (09:00→22:03)
[2016-12-19] MEDS: DOCUSATE SODIUM 50 MG/SENNA 8.6 MG TAB PO SCH ×2 (09:00→21:00)
[2016-12-19] MEDS: ARTIFICIAL TEARS OPTH SOLN 15 ML BTL EACH EYE SCH ×3 (09:00→13:43)
[2016-12-19] MEDS: INSULIN NovoLIN REGULAR SUPPLEMENTAL SCALE SQ SCH ×4 (09:53→18:00)
[2016-12-19] MEDS: ONDANSETRON HCL 4 MG/2 ML VIAL IV PRN (09:54)
[2016-12-19] MEDS: LEVOFLOXACIN 500 MG TAB PO SCH (09:54)
[2016-12-19] MEDS: PANTOPRAZOLE SODIUM 40 MG VIAL IV SCH (09:54)
[2016-12-19] MEDS: ENOXAPARIN SODIUM 40 MG/0.4 ML SYRINGE SQ SCH (10:00)
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
[2016-12-19] MEDS: ERYTHROMYCIN INJ 250 MG in SODIUM CHLORIDE 0.9% INJ 100 ML IV SCH ×3 (12:06→22:02)
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
[2016-12-19] MEDS: MAGNESIUM HYDROXIDE SUSP 30 ML CUP PO SCH (21:00)
[2016-12-19] MEDS ORDERED: traZODone HCL 50 MG TAB PO SCH (21:00)
[2016-12-19] MEDS: traZODone HCL 50 MG TAB PO SCH (22:01)
[2016-12-19] MEDS: CLINIMIX E 5/25 2000 mL- >42 mls/hr IV-CENTRAL SCH ×3 (22:03)
[2016-12-20] VITALS (17 sets, daily range): BP systolic 108–136; BP diastolic 65–92; PULSE 76–99; RESP 22–28; TEMP 98.2–98.6; O2SAT 93–99
[2016-12-20] MEDS: CHLORHEXIDINE GLUCONATE 2 % 1 PACK (2 CLOTHS) TOP SCH (04:00)
[2016-12-20] MEDS: ERYTHROMYCIN INJ 250 MG in SODIUM CHLORIDE 0.9% INJ 100 ML IV SCH ×4 (04:46→22:34)
[2016-12-20] MEDS: INSULIN NovoLIN REGULAR SUPPLEMENTAL SCALE SQ SCH ×4 (06:00→18:07)
[2016-12-20 06:10] LABS: HEMATOCRIT 25.7 % (35.0-46.0); MEAN CELL VOLUME 88.9 FL (80.0-100.0); MEAN CORPUSCULAR HEMOGLOBIN 30.2 PG (27.0-34.0); PLATELET COUNT 447 TH/MM3 (150-450); RED BLOOD COUNT 2.89 MIL/MM3 (4.00-5.30); REVIEW FLAG FINAL; WHITE BLOOD COUNT 14.4 TH/MM3 (4.0-11.0)
[2016-12-20 06:36] LABS: BICARBONATE 27.8 MEQ/L (21.0-32.0); POTASSIUM 3.2 MEQ/L (3.5-5.1)
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
[2016-12-20] MEDS: POTASSIUM CHLOR 20 MEQ PREMIX 100 ML IV PRN (07:47)
[2016-12-20] MEDS: SODIUM CHLORIDE 0.9% FLUSH 5 ML FLUSH IV FLUSH SCH ×2 (07:52→20:32)
[2016-12-20] MEDS: CHLORHEXIDINE 0.12% (ORAL KIT) 15 ML CUP MT SCH ×2 (08:00→20:00)
[2016-12-20] MEDS: ARTIFICIAL TEARS OPTH SOLN 15 ML BTL EACH EYE SCH ×3 (08:30→17:58)
[2016-12-20] MEDS: DOCUSATE SODIUM 50 MG/SENNA 8.6 MG TAB PO SCH ×2 (08:43→20:33)
[2016-12-20] MEDS: PANTOPRAZOLE SODIUM 40 MG VIAL IV SCH (08:43)
[2016-12-20] MEDS: ENOXAPARIN SODIUM 40 MG/0.4 ML SYRINGE SQ SCH (11:05)
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
[2016-12-20] MEDS: ACETAMINOPHEN 650 MG/20.3 ML UDC PO PRN ×2 (15:42→20:33)
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
[2016-12-20] MEDS: CLINIMIX E 5/25 2000 mL- >42 mls/hr IV-CENTRAL SCH ×3 (20:32)
[2016-12-20] MEDS: MAGNESIUM HYDROXIDE SUSP 30 ML CUP PO SCH (20:32)
[2016-12-20] MEDS: traZODone HCL 50 MG TAB PO SCH (20:32)
[2016-12-21] VITALS (15 sets, daily range): BP systolic 134–151; BP diastolic 67–98; PULSE 90–117; RESP 24–35; TEMP 98.3–99.4; O2SAT 90–100
[2016-12-21] MEDS: ONDANSETRON HCL 4 MG/2 ML VIAL IV PRN ×2 (01:37→21:30)
[2016-12-21] MEDS: CHLORHEXIDINE GLUCONATE 2 % 1 PACK (2 CLOTHS) TOP SCH (01:41)
[2016-12-21] MEDS: ERYTHROMYCIN INJ 250 MG in SODIUM CHLORIDE 0.9% INJ 100 ML IV SCH ×4 (05:10→23:38)
[2016-12-21 05:27] LABS: BLOOD GAS CARBOXYHEMOGLOBIN 1.8 % (0-4); BLOOD GAS HCO3 26 mmol/L (22-26); BLOOD GAS METHEMOGLOBIN 0.7 % (0-2); BLOOD GAS O2 HGB SATURATION 95 % (90-100); BLOOD GAS OXYGEN CONTENT 11.8 Vol % (12.0-20.0); BLOOD GAS PCO2 36 mmHg (38-42); BLOOD GAS PO2 87 mmHg (61-120); BLOOD GAS TOTAL HGB 8.8 G/DL (12.0-16.0); CRITICAL VALUE NO; DRAW SITE RT RADIAL; FIO2 40 %; NUMBER OF ARTERIAL PUNCTURES 2; OXYGEN DEVICE VENTILATOR; STAT NO; TEMP CORR TO 98.6; ULNAR PULSE PRESENT; VENT SETTINGS AC/10/500/PEEP5
[2016-12-21 05:45] LABS: HEMATOCRIT 26.7 % (35.0-46.0); MEAN CELL VOLUME 88.5 FL (80.0-100.0); MEAN CORPUSCULAR HEMOGLOBIN 29.4 PG (27.0-34.0); MEAN CORPUSCULAR HGB CONC 33.2 % (32.0-36.0); PLATELET COUNT 466 TH/MM3 (150-450); RED BLOOD COUNT 3.02 MIL/MM3 (4.00-5.30); RED CELL DISTRIBUTION WIDTH 14.9 % (11.6-17.2); REVIEW FLAG FINAL; WHITE BLOOD COUNT 17.2 TH/MM3 (4.0-11.0)
[2016-12-21] MEDS: INSULIN NovoLIN REGULAR SUPPLEMENTAL SCALE SQ SCH ×5 (06:00→23:38)
[2016-12-21 06:10] LABS: BICARBONATE 26.5 MEQ/L (21.0-32.0); POTASSIUM 3.3 MEQ/L (3.5-5.1)
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
[2016-12-21] MEDS: SODIUM CHLORIDE 0.9% FLUSH 5 ML FLUSH IV FLUSH SCH ×2 (07:53→20:43)
[2016-12-21] MEDS: CHLORHEXIDINE 0.12% (ORAL KIT) 15 ML CUP MT SCH ×2 (08:50→19:56)
[2016-12-21] MEDS: DOCUSATE SODIUM 50 MG/SENNA 8.6 MG TAB PO SCH ×2 (08:51→20:44)
[2016-12-21] MEDS: PANTOPRAZOLE SODIUM 40 MG VIAL IV SCH (08:51)
[2016-12-21] MEDS: ARTIFICIAL TEARS OPTH SOLN 15 ML BTL EACH EYE SCH ×3 (08:51→17:12)
[2016-12-21] MEDS: POTASSIUM CHLOR 40 MEQ PREMIX 100 ML IV PRN (08:51)
[2016-12-21] MEDS: ENOXAPARIN SODIUM 40 MG/0.4 ML SYRINGE SQ SCH (11:21)
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
[2016-12-21] MEDS: CLINIMIX E 5/25 2000 mL- >42 mls/hr IV-CENTRAL SCH ×3 (19:56)
[2016-12-21] MEDS: MAGNESIUM HYDROXIDE SUSP 30 ML CUP PO SCH ×2 (20:43→21:00)
[2016-12-21] MEDS: traZODone HCL 50 MG TAB PO SCH ×2 (20:43→21:00)
[2016-12-21] MEDS ORDERED: LORazepam 2 MG/ML VIAL ONE (21:26)
[2016-12-21] MEDS ORDERED: LORazepam 2 MG/ML VIAL IV ONE (22:15)
[2016-12-22] VITALS (18 sets, daily range): BP systolic 140–161; BP diastolic 68–92; PULSE 74–126; RESP 26–42; TEMP 98.2–99; O2SAT 92–100
[2016-12-22] MEDS: CHLORHEXIDINE GLUCONATE 2 % 1 PACK (2 CLOTHS) TOP SCH (03:20)
[2016-12-22 03:50] LABS: MEAN CELL VOLUME 89.4 FL (80.0-100.0); MEAN CORPUSCULAR HGB CONC 33.6 % (32.0-36.0); PLATELET COUNT 495 TH/MM3 (150-450); RED BLOOD COUNT 3.13 MIL/MM3 (4.00-5.30); RED CELL DISTRIBUTION WIDTH 14.8 % (11.6-17.2); REVIEW FLAG FINAL; WHITE BLOOD COUNT 15.5 TH/MM3 (4.0-11.0)
[2016-12-22 04:10] LABS: ALKALINE PHOSPHATASE 163 U/L (45-117); ALT (GPT) 339 U/L (10-53); ANION GAP 5 MEQ/L (5-15); AST (GOT) 216 U/L (15-37); BICARBONATE 29.1 MEQ/L (21.0-32.0); BLOOD UREA NITROGEN 15 MG/DL (7-18); CHLORIDE 106 MEQ/L (98-107); GLOMERULAR FILTRATION RATE 123 ML/MIN (>89); POTASSIUM 3.4 MEQ/L (3.5-5.1); SODIUM (NA) 140 MEQ/L (136-145); TOTAL BILIRUBIN ADULT 0.8 MG/DL (0.2-1.0)
[2016-12-22] MEDS: ERYTHROMYCIN INJ 250 MG in SODIUM CHLORIDE 0.9% INJ 100 ML IV SCH ×4 (04:21→23:00)
[2016-12-22] MEDS: POTASSIUM CHLOR 20 MEQ PREMIX 100 ML IV PRN ×2 (04:54→05:29)
[2016-12-22] MEDS: INSULIN NovoLIN REGULAR SUPPLEMENTAL SCALE SQ SCH ×3 (05:07→17:55)
[2016-12-22] MEDS: DOCUSATE SODIUM 50 MG/SENNA 8.6 MG TAB PO SCH ×2 (07:57→21:00)
[2016-12-22] MEDS: SODIUM CHLORIDE 0.9% FLUSH 5 ML FLUSH IV FLUSH SCH ×2 (07:57→21:00)
[2016-12-22] MEDS: ARTIFICIAL TEARS OPTH SOLN 15 ML BTL EACH EYE SCH ×3 (09:00→17:55)
[2016-12-22] MEDS: CHLORHEXIDINE 0.12% (ORAL KIT) 15 ML CUP MT SCH ×2 (09:16→20:00)
[2016-12-22] MEDS: PANTOPRAZOLE SODIUM 40 MG VIAL IV SCH (09:16)
[2016-12-22] MEDS ORDERED: ZETI10TA5 PO (09:26)
[2016-12-22] MEDS ORDERED: LEVO75TA3 PO (09:26)
[2016-12-22] MEDS ORDERED: NAPR500T PO (09:26)
[2016-12-22] MEDS ORDERED: MIRTA15 PO (09:26)
[2016-12-22] MEDS ORDERED: DULO1CAP2 PO (09:26)
[2016-12-22] MEDS ORDERED: SIMV10TA PO (09:26)
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
[2016-12-22] MEDS ORDERED: LIDOCAINE HCL 2% 100 MG/5 ML SYRINGE ONE (11:07)
[2016-12-22] MEDS ORDERED: EPINEPHrine HCL (1:10,000) 1 MG/10 ML SYRINGE ONE (11:07)
[2016-12-22] MEDS ORDERED: ATROPINE SULFATE 1 MG/10 ML SYRINGE ONE (11:07)
[2016-12-22] MEDS: ENOXAPARIN SODIUM 40 MG/0.4 ML SYRINGE SQ SCH (13:50)
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
[2016-12-22] MEDS: DIAZEPAM 5 MG TAB PO PRN ×2 (14:53→21:59)
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
[2016-12-22] MEDS: CLINIMIX E 5/25 2000 mL- >42 mls/hr IV-CENTRAL SCH ×3 (20:00)
[2016-12-22] MEDS: MAGNESIUM HYDROXIDE SUSP 30 ML CUP PO SCH (21:00)
[2016-12-22] MEDS: POVIDONE IODINE 10% SOLN 480 ML BTL TOPICAL SCH (21:00)
[2016-12-22] MEDS: traZODone HCL 50 MG TAB PO SCH (21:58)
[2016-12-23] VITALS (13 sets, daily range): BP systolic 136–155; BP diastolic 68–97; PULSE 88–116; RESP 24–32; TEMP 98.2–98.9; O2SAT 91–96
[2016-12-23] MEDS: CHLORHEXIDINE GLUCONATE 2 % 1 PACK (2 CLOTHS) TOP SCH (04:00)
[2016-12-23] MEDS: ERYTHROMYCIN INJ 250 MG in SODIUM CHLORIDE 0.9% INJ 100 ML IV SCH ×3 (05:00→17:07)
[2016-12-23] MEDS: INSULIN NovoLIN REGULAR SUPPLEMENTAL SCALE SQ SCH ×2 (06:00)
[2016-12-23 06:11] LABS: HEMATOCRIT 28.2 % (35.0-46.0); MEAN CELL VOLUME 88.6 FL (80.0-100.0); MEAN CORPUSCULAR HEMOGLOBIN 29.9 PG (27.0-34.0); MEAN CORPUSCULAR HGB CONC 33.8 % (32.0-36.0); PLATELET COUNT 514 TH/MM3 (150-450); RED BLOOD COUNT 3.18 MIL/MM3 (4.00-5.30); RED CELL DISTRIBUTION WIDTH 15.2 % (11.6-17.2); REVIEW FLAG FINAL; WHITE BLOOD COUNT 14.9 TH/MM3 (4.0-11.0)
[2016-12-23 06:34] LABS: BICARBONATE 26.7 MEQ/L (21.0-32.0); MAGNESIUM 1.9 MG/DL (1.5-2.5)
[2016-12-23] MEDS: CLINIMIX E 5/25 2000 mL- >42 mls/hr IV-CENTRAL SCH ×3 (06:38)
[2016-12-23] MEDS: ARTIFICIAL TEARS OPTH SOLN 15 ML BTL EACH EYE SCH ×2 (07:33→07:35)
[2016-12-23] MEDS: DOCUSATE SODIUM 50 MG/SENNA 8.6 MG TAB PO SCH ×2 (07:33→19:57)
[2016-12-23] MEDS: SODIUM CHLORIDE 0.9% FLUSH 5 ML FLUSH IV FLUSH SCH ×2 (07:34→19:57)
[2016-12-23] MEDS: POVIDONE IODINE 10% SOLN 480 ML BTL TOPICAL SCH ×2 (07:52→19:58)
[2016-12-23] MEDS: CHLORHEXIDINE 0.12% (ORAL KIT) 15 ML CUP MT SCH (07:52)
[2016-12-23] MEDS: PANTOPRAZOLE SODIUM 40 MG VIAL IV SCH (08:31)
[2016-12-23] MEDS: DIAZEPAM 5 MG TAB PO PRN ×2 (09:05→19:56)
[2016-12-23] MEDS: ENOXAPARIN SODIUM 40 MG/0.4 ML SYRINGE SQ SCH (10:25)
[2016-12-23] MEDS: LEVOTHYROXINE SODIUM 75 MCG TAB PO SCH (11:00)
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
[2016-12-23] MEDS: FAMOTIDINE 20 MG TAB PO SCH (19:57)
[2016-12-23] MEDS: MAGNESIUM HYDROXIDE SUSP 30 ML CUP PO SCH (19:57)
[2016-12-23] MEDS: traZODone HCL 50 MG TAB PO SCH (19:57)
[2016-12-24] VITALS (8 sets, daily range): BP systolic 108–126; BP diastolic 62–78; PULSE 98–105; RESP 18–26; TEMP 98–100.7; O2SAT 92–98
[2016-12-24] MEDS: ERYTHROMYCIN INJ 250 MG in SODIUM CHLORIDE 0.9% INJ 100 ML IV SCH ×5 (00:17→22:25)
[2016-12-24] MEDS: ACETAMINOPHEN 650 MG/20.3 ML UDC PO PRN (00:18)
[2016-12-24] MEDS: LEVOTHYROXINE SODIUM 75 MCG TAB PO SCH (05:52)
[2016-12-24] MEDS: ARTIFICIAL TEARS OPTH SOLN 15 ML BTL EACH EYE SCH ×3 (06:57→16:11)
[2016-12-24] MEDS: DOCUSATE SODIUM 50 MG/SENNA 8.6 MG TAB PO SCH ×2 (06:58→20:09)
[2016-12-24] MEDS: SODIUM CHLORIDE 0.9% FLUSH 5 ML FLUSH IV FLUSH SCH ×2 (07:21→21:22)
[2016-12-24] MEDS: POVIDONE IODINE 10% SOLN 480 ML BTL TOPICAL SCH ×2 (07:22→20:10)
[2016-12-24] MEDS: ENOXAPARIN SODIUM 40 MG/0.4 ML SYRINGE SQ SCH (11:01)
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
[2016-12-24] MEDS ORDERED: DIAZ5 PO (15:50)
[2016-12-24] MEDS ORDERED: ENOX40P SQ (15:50)
[2016-12-24] MEDS ORDERED: LACT10SO PO (15:50)
[2016-12-24] MEDS ORDERED: TRAZ50TA12 PO (15:50)
[2016-12-24] MEDS ORDERED: FAMO20TA2 PO (15:50)
[2016-12-24] MEDS ORDERED: LEVO.075 PO (15:50)
[2016-12-24] MEDS ORDERED: SENN1TAB PO (15:50)
[2016-12-24] MEDS ORDERED: BETA10SO TOPICAL (15:50)
[2016-12-24] MEDS ORDERED: MILKSUS PO (15:50)
[2016-12-24] MEDS ORDERED: ACET160S3 PO (15:50)
[2016-12-24] MEDS: traZODone HCL 50 MG TAB PO SCH (20:09)
[2016-12-24] MEDS: MAGNESIUM HYDROXIDE SUSP 30 ML CUP PO SCH (20:09)
[2016-12-24] MEDS: FAMOTIDINE 20 MG TAB PO SCH (20:09)
[2016-12-24] MEDS: DIAZEPAM 5 MG TAB PO PRN (22:25)
[2016-12-25] VITALS (8 sets, daily range): BP systolic 103–121; BP diastolic 60–69; PULSE 90–107; RESP 17–24; TEMP 98.2–98.8; O2SAT 91–97
[2016-12-25] MEDS: LEVOTHYROXINE SODIUM 75 MCG TAB PO SCH (05:04)
[2016-12-25] MEDS: ERYTHROMYCIN INJ 250 MG in SODIUM CHLORIDE 0.9% INJ 100 ML IV SCH ×3 (05:05→17:49)
[2016-12-25] MEDS: DOCUSATE SODIUM 50 MG/SENNA 8.6 MG TAB PO SCH ×2 (09:00→21:00)
[2016-12-25] MEDS: ARTIFICIAL TEARS OPTH SOLN 15 ML BTL EACH EYE SCH ×3 (09:00→18:00)
[2016-12-25] MEDS: ENOXAPARIN SODIUM 40 MG/0.4 ML SYRINGE SQ SCH (09:40)
[2016-12-25] MEDS: SODIUM CHLORIDE 0.9% FLUSH 5 ML FLUSH IV FLUSH SCH ×2 (09:46→22:23)
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
[2016-12-25] MEDS: FAMOTIDINE 20 MG TAB PO SCH (21:00)
[2016-12-25] MEDS: MAGNESIUM HYDROXIDE SUSP 30 ML CUP PO SCH (21:00)
[2016-12-25] MEDS: traZODone HCL 50 MG TAB PO SCH (22:23)
[2016-12-25] MEDS: DIAZEPAM 5 MG TAB PO PRN (22:23)
[2016-12-26] VITALS: BP 100/64; PULSE 76; RESP 17; TEMP 98; O2SAT 98
[2016-12-26] MEDS: ERYTHROMYCIN INJ 250 MG in SODIUM CHLORIDE 0.9% INJ 100 ML IV SCH ×2 (00:09→06:20)
[2016-12-26] MEDS: LEVOTHYROXINE SODIUM 75 MCG TAB PO SCH (06:20)
[2016-12-26] MEDS: SODIUM CHLORIDE 0.9% FLUSH 5 ML FLUSH IV FLUSH SCH (07:45)
[2016-12-26] MEDS: POVIDONE IODINE 10% SOLN 480 ML BTL TOPICAL SCH (07:50)
[2016-12-26 08:00] VITALS: BP 117/62; PULSE 80; RESP 19; TEMP 97.5; O2SAT 96
[2016-12-26] MEDS: DOCUSATE SODIUM 50 MG/SENNA 8.6 MG TAB PO SCH (08:17)
[2016-12-26] MEDS: ARTIFICIAL TEARS OPTH SOLN 15 ML BTL EACH EYE SCH (08:17)
[2016-12-26 10:11] VITALS: O2SAT 91
[2016-12-26] MEDS ORDERED: DIAZ5 PO (11:28)
[2016-12-26] MEDS ORDERED: HYDR-3578 PO (11:38)
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
[2017-01-04] MEDS ORDERED: DIAZ5 PO (10:18)
[2017-01-04] MEDS ORDERED: TRAZ50TA12 PO (10:18)
[2017-01-04] MEDS ORDERED: LEVO.075 PO (10:18)
[2017-01-04] MEDS ORDERED: VENTAER INH (10:18)
[2017-01-04] MEDS ORDERED: SYMB80AE INH (10:18)
[2017-02-28] MEDS ORDERED: GABA300C5 PO (16:03)
[2017-05-04] MEDS ORDERED: GABA300C5 PO (15:18)
== END 2016-12-26 10:30 | DRG 3 ==
LOC: NEPI 00:05 → NEDA 00:39 → MERGE 00:39 → EDBD 00:39 → N03B 01:56 → N07A 12-23 18:34
PROVIDERS: ADMIT Surgery; ATTEND Surgery
PROC: 30233K1 Transfusion of Nonautologous Frozen Plasma into Peripheral Vein, Percutaneous Approach (ICD-10-PCS; 2016-11-25)
PROC: 30233N1 Transfusion of Nonautologous Red Blood Cells into Peripheral Vein, Percutaneous Approach (ICD-10-PCS; 2016-11-25)
PROC: 5A1955Z Respiratory Ventilation, Greater than 96 Consecutive Hours (ICD-10-PCS; 2016-11-27)
PROC: 04Q Lower Arteries, Repair (ICD-10-PCS; 2016-11-27)
PROC: 04Q00ZZ Repair Abdominal Aorta, Open Approach (ICD-10-PCS; 2016-11-27)
PROC: 0FB20ZZ Excision of Left Lobe Liver, Open Approach (ICD-10-PCS; 2016-11-27)
PROC: 06HN33Z Insertion of Infusion Device into Left Femoral Vein, Percutaneous Approach (ICD-10-PCS; 2016-11-27)
PROC: 6A551Z2 Pheresis of Platelets, Multiple (ICD-10-PCS; 2016-11-27)
PROC: 0FQ20ZZ Repair Left Lobe Liver, Open Approach (ICD-10-PCS; principal; 2016-11-27 00:32)
PROC: 0FB20ZZ Excision of Left Lobe Liver, Open Approach (ICD-10-PCS; 2016-11-28)
PROC: 0WQF0ZZ Repair Abdominal Wall, Open Approach (ICD-10-PCS; 2016-12-02)
PROC: 3E1M38Z Irrigation of Peritoneal Cavity using Irrigating Substance, Percutaneous Approach (ICD-10-PCS; 2016-12-02)
PROC: 0B110F4 Bypass Trachea to Cutaneous with Tracheostomy Device, Open Approach (ICD-10-PCS; 2016-12-08)
PROC: 0BJ08ZZ Inspection of Tracheobronchial Tree, Via Natural or Artificial Opening Endoscopic (ICD-10-PCS; 2016-12-08)
PROC: 0B978ZX Drainage of Left Main Bronchus, Via Natural or Artificial Opening Endoscopic, Diagnostic (ICD-10-PCS; 2016-12-11)
PROC: 02HV33Z Insertion of Infusion Device into Superior Vena Cava, Percutaneous Approach (ICD-10-PCS; 2016-12-13)
DX: S36.116A Major laceration of liver, initial encounter (principal); T79.4XXA Traumatic shock, initial encounter; S35.00XA Unspecified injury of abdominal aorta, initial encounter; K72.00 Acute and subacute hepatic failure without coma; J69.0 Pneumonitis due to inhalation of food and vomit; K66.1 Hemoperitoneum; A41.9 Sepsis, unspecified organism; J95.821 Acute postprocedural respiratory failure; S31.601 Unspecified open wound of abdominal wall, left upper quadrant with penetration into peritoneal cavity; D68.9 Coagulation defect, unspecified; E87.2 Acidosis; J68.0 Bronchitis and pneumonitis due to chemicals, gases, fumes and vapors; F33.9 Major depressive disorder, recurrent, unspecified; J80 Acute respiratory distress syndrome; D62 Acute posthemorrhagic anemia; J98.19 Other pulmonary collapse; Y93.89 Activity, other specified; Y92.9 Unspecified place or not applicable; Y99.9 Unspecified external cause status; Z91.5 Personal history of self-harm; F41.9 Anxiety disorder, unspecified; E78.5 Hyperlipidemia, unspecified; M19.90 Unspecified osteoarthritis, unspecified site; F17.200 Nicotine dependence, unspecified, uncomplicated; I16.0 Hypertensive urgency; Y95 Nosocomial condition; F10.129 Alcohol abuse with intoxication, unspecified; E87.70 Fluid overload, unspecified; E83.51 Hypocalcemia
CPT/HCPCS: 31500; 36430; 36556; 36600; 70450; 71010; 71260; 72125; 74000; 74177; 74245; 76000; 80048; 80053; 80202; 81001; 82435; 82565; 82805; 82947; 82948; 83605; 83690; 83735; 84100; 84132; 84155; 84295; 84520; 84702; 85007; 85014; 85018; 85025; 85027; 85384; 85610; 85730; 86403; 86850; 86900; 86901; 86920; 86927; 86965; 87040; 87070; 87077; 87086; 87106; 87186; 87205; 90471; 93306; 93970; 94002; 94003; 94640; 94664; 96374; 99291; A0431-QM-SH; A0436-QM-SH; C9113; G0390; J0131; J0171; J0461; J0610; J0690; J1364; J1450; J1650; J1940; J1956; J2020; J2060; J2185; J2248; J2250; J2370; J2405; J2543; J2765; J2930; J2997; J3010; J3370; J3411; J3475; J3480; J7030; J7040; J7050; J7060; J7120; P9016; P9017; P9035; P9045; Q9967

== ENCOUNTER 2017-01-15 11:46 | Emergency (ER) | payer OTHER ==
[~2017-01-15] VITALS: Ht 165.1 cm; Wt 68.0 kg
[~2017-01-15 11:46] MED LIST changes: +ACET160S3 PO; +BETA10SO TOPICAL; +ENOX40P SQ; +FAMO20TA2 PO; +LACT10SO PO; +LEVO.075 PO; -LORC10TA PO; +MILKSUS PO; +SENN1TAB PO; +SYMB80AE INH; +TRAZ50TA12 PO; +VENTAER INH
[2017-01-15 11:50] VITALS: BP 124/85; PULSE 84; RESP 16; TEMP 98.1; O2SAT 99
[2017-01-15 12:43] VITALS: BP 117/84; PULSE 82; RESP 20; TEMP 97.7; O2SAT 98
[2017-01-15] MEDS ORDERED: DIAZ10TA PO (13:10)
[2017-01-15] MEDS ORDERED: CYMB30CA PO (13:12)
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
[2017-01-15] MEDS ORDERED: ACETAMINOPHEN/HYDROcodone 325 MG/5 MG TAB PO ONE (15:15)
[2017-02-28] MEDS ORDERED: GABA300C5 PO (16:03)
[2017-05-04] MEDS ORDERED: GABA300C5 PO (15:18)
== END 2017-01-15 16:30 | disposition home or self-care (01) ==
LOC: NEPC 11:46
DX: T85.848A Pain due to other internal prosthetic devices, implants and grafts, initial encounter (principal); E78.00 Pure hypercholesterolemia, unspecified; F17.200 Nicotine dependence, unspecified, uncomplicated; Z87.39 Personal history of other diseases of the musculoskeletal system and connective tissue; Z86.59 Personal history of other mental and behavioral disorders; Z87.42 Personal history of other diseases of the female genital tract
CPT/HCPCS: 99282

== ENCOUNTER 2017-11-02 20:09 | Emergency (ER) | payer OTHER ==
[~2017-11-02 20:09] MED LIST changes: -ACET160S3 PO; -BETA10SO TOPICAL; +CYMB30CA PO; +DIAZ10TA PO; -DIAZ5 PO; -ENOX40P SQ; -FAMO20TA2 PO; +GABA300C5 PO; -LACT10SO PO; -MILKSUS PO; -SENN1TAB PO; -SYMB80AE INH
[2017-11-02 20:26] VITALS: BP 116/78; PULSE 98; RESP 16; TEMP 98; O2SAT 98
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
== END 2017-11-02 22:40 | disposition left against medical advice (07) ==
LOC: PHED 20:09
DX: S62.301A Unspecified fracture of second metacarpal bone, left hand, initial encounter for closed fracture (principal); E78.00 Pure hypercholesterolemia, unspecified; F32.9 Major depressive disorder, single episode, unspecified; F17.210 Nicotine dependence, cigarettes, uncomplicated; W19.XXXA Unspecified fall, initial encounter; Z88.0 Allergy status to penicillin
CPT/HCPCS: 71101; 73130; 99284

== ENCOUNTER 2017-11-21 01:34 | Inpatient (IN) | payer OTHER ==
[2017-11-21] VITALS (7 sets, daily range): BP systolic 96–140; BP diastolic 62–89; PULSE 75–124; RESP 13–20; TEMP 97.8–98.4; O2SAT 97–99
[~2017-11-21 01:34] MED LIST changes: -CYMB30CA PO; -GABA300C5 PO
[2017-11-21] MEDS ORDERED: LORazepam 2 MG/ML VIAL IM ONE (02:15)
[2017-11-21] MEDS ORDERED: HALOPERIDOL LACTATE 5 MG/ML AMP IM ONE (02:15)
[2017-11-21 02:37] LABS: BACTERIA, URINE RARE /hpf; BILIRUBIN, URINE NEG (NEG); BLOOD, URINE NEG (NEG); GLUCOSE,URINE NEG (NEG); KETONE, URINE NEG (NEG); MUCUS URINE FEW /lpf (OCC); NITRITE,URINE NEG (NEG); SQUAMOUS EPITHELIAL CELL URINE 2 /hpf (0-5); URINE COLOR LIGHT-YELLOW (YELLW/STRAW); URINE LEUKOCYTE ESTERASE NEG (NEG)
[2017-11-21 02:39] LABS: HEMATOCRIT 44.6 % (35.0-46.0); HEMOGLOBIN 15.6 GM/DL (11.6-15.3); MEAN CELL VOLUME 90.6 FL (80.0-100.0); MEAN CORPUSCULAR HEMOGLOBIN 31.7 PG (27.0-34.0); MEAN CORPUSCULAR HGB CONC 34.9 % (32.0-36.0); MEAN PLATELET VOLUME 8.6 FL (7.0-11.0); PLATELET COUNT 256 TH/MM3 (150-450); RED BLOOD COUNT 4.91 MIL/MM3 (4.00-5.30); RED CELL DISTRIBUTION WIDTH 12.5 % (11.6-17.2); WHITE BLOOD COUNT 12.4 TH/MM3 (4.0-11.0)
[2017-11-21 03:02] LABS: ACETAMINOPHEN LESS THAN 2.0 MCG/ML (10.0-30.0); ALBUMIN 4.1 GM/DL (3.4-5.0); ALKALINE PHOSPHATASE 159 U/L (45-117); ALT (GPT) 95 U/L (10-53); AST (GOT) 43 U/L (15-37); BICARBONATE 25.3 MEQ/L (21.0-32.0); BLOOD UREA NITROGEN 10 MG/DL (7-18); CALCIUM 8.5 MG/DL (8.5-10.1); CHLORIDE 108 MEQ/L (98-107); CREATININE 0.73 MG/DL (0.50-1.00); GLOMERULAR FILTRATION RATE 86 ML/MIN (>89); SODIUM (NA) 143 MEQ/L (136-145); TOTAL BILIRUBIN ADULT 0.1 MG/DL (0.2-1.0); TOTAL PROTEIN 8.3 GM/DL (6.4-8.2)
[2017-11-21 03:05] LABS: GLUCOSE,RANDOM 112 MG/DL (74-106)
[2017-11-21 03:06] LABS: BANDS 1 % (0-6); LYMPHOCYTES 58 % (9-44); MONOCYTES 7 % (0-8); POLYS (SEG NEUTROPHILS) 31 % (16-70)
[2017-11-21 03:07] LABS: STOMATOCYTES 1+ (NORMAL)
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
[2017-11-21] MEDS ORDERED: ACETAMINOPHEN 325 MG TAB PO PRN (15:45)
[2017-11-21] MEDS ORDERED: LORazepam 2 MG/ML VIAL IV PUSH PRN (15:45)
[2017-11-21] MEDS ORDERED: MAGNESIUM HYDROXIDE SUSP 30 ML CUP PO PRN (15:45)
[2017-11-21] MEDS ORDERED: ALUMINUM/MAGNESIUM/SIMETH 30 ML CUP PO PRN (15:45)
[2017-11-21] MEDS ORDERED: FLUMAZENIL 0.5 MG/5 ML VIAL IV PUSH PRN (15:45)
[2017-11-21] MEDS ORDERED: LORazepam 2 MG/ML VIAL IM PRN ×3 (15:45)
[2017-11-21] MEDS ORDERED: LORazepam 2 MG TAB PO PRN (15:45)
[2017-11-21] MEDS ORDERED: LORazepam 1 MG TAB PO PRN (15:45)
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
[2017-11-22] MEDS: LEVOTHYROXINE SODIUM 75 MCG TAB PO SCH (06:00)
[2017-11-22 06:50] VITALS: BP 114/70; PULSE 82; RESP 16; TEMP 97.7; O2SAT 98
[2017-11-22 10:12] LABS: AUTOMATED NEUTROPHIL # 7.5 TH/MM3 (1.8-7.7); BASOPHIL # 0.1 TH/MM3 (0-0.2); BASOPHIL % 0.4 % (0.0-2.0); EOSINOPHIL # 0.1 TH/MM3 (0-0.4); HEMATOCRIT 45.9 % (35.0-46.0); HEMOGLOBIN 15.8 GM/DL (11.6-15.3); LYMPH % 35.8 % (9.0-44.0); LYMPHOCYTE # 4.8 TH/MM3 (1.0-4.8); MEAN CELL VOLUME 90.4 FL (80.0-100.0); MEAN CORPUSCULAR HEMOGLOBIN 31.2 PG (27.0-34.0); MEAN CORPUSCULAR HGB CONC 34.5 % (32.0-36.0); MEAN PLATELET VOLUME 8.6 FL (7.0-11.0); MONOCYTE # 0.9 TH/MM3 (0-0.9); NEUT % 55.8 % (16.0-70.0); PLATELET COUNT 255 TH/MM3 (150-450); RED BLOOD COUNT 5.08 MIL/MM3 (4.00-5.30); RED CELL DISTRIBUTION WIDTH 12.9 % (11.6-17.2); WHITE BLOOD COUNT 13.5 TH/MM3 (4.0-11.0)
[2017-11-22 10:40] LABS: ALT (GPT) 70 U/L (10-53); AST (GOT) 25 U/L (15-37); BICARBONATE 28.4 MEQ/L (21.0-32.0); BLOOD UREA NITROGEN 20 MG/DL (7-18); CALCIUM 9.4 MG/DL (8.5-10.1); CHLORIDE 95 MEQ/L (98-107); CHOLESTEROL 261 MG/DL (120-200); CREATININE 0.97 MG/DL (0.50-1.00); GLOMERULAR FILTRATION RATE 62 ML/MIN (>89); GLUCOSE,RANDOM 90 MG/DL (74-106); SODIUM (NA) 134 MEQ/L (136-145); TRIGLYCERIDES 333 MG/DL (42-150)
[2017-11-22 11:05] LABS: ALKALINE PHOSPHATASE 164 U/L (45-117); CHOLESTEROL/ HDL RATIO 5.05 RATIO; HDL CHOLESTEROL 51.6 MG/DL (40.0-60.0); LDL CHOLESTEROL 143 MG/DL (0-99); TOTAL BILIRUBIN ADULT 0.6 MG/DL (0.2-1.0); TOTAL PROTEIN 8.6 GM/DL (6.4-8.2)
[2017-11-22] MEDS ORDERED: ESCITALOPRAM OXALATE 10 MG TAB PO ONE (14:45)
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
[2017-11-22 18:26] VITALS: BP 135/90; PULSE 86; RESP 17; TEMP 98.2; O2SAT 98
[2017-11-22] MEDS: traZODone HCL 50 MG TAB PO SCH (22:07)
--- NOTE | 2017-11-22 22:40 | EKG ---
Date Performed: 11/22/2017 Time Performed: 10:57:40 PTAGE: 47 years EKG: Sinus rhythm INCOMPLETE RIGHT BUNDLE BRANCH BLOCK BORDERLINE ECG PREVIOUS TRACING : 06/08/2010 23.00 DOCTOR: Jeannie Casanova Interpretating Date/Time 11/22/2017 22:39:34
[2017-11-23] MEDS: LEVOTHYROXINE SODIUM 75 MCG TAB PO SCH (06:07)
[2017-11-23 06:46] VITALS: BP 117/60; PULSE 72; RESP 16; TEMP 97.9; O2SAT 98
[2017-11-23 06:48] VITALS: BP 179/91; PULSE 90; RESP 16; TEMP 98.1; O2SAT 98
[2017-11-23] MEDS: ESCITALOPRAM OXALATE 20 MG TAB PO SCH (08:39)
--- NOTE | 2017-11-23 16:14 | HHI.PYPN ---
Subjective Remarks Patient seen for follow-up, chart reviewed. Discussion with nursing staff reported that CIWA was negative. Patient was found participation in groups noted to be in good spirits. She states having slept well, mood being "good", denies feeling depressed at this time, tolerating medications well, denies any SI, looking forward to seeing her pets and mother. Review of Systems Except as stated in HPI: all other systems reviewed are Neg Mental Status Examination Appearance: Appropriate Consciousness: Alert Orientation: x4 Motor Activity: Normal gait Speech: Unremarkable Language: Adequate Fund of Knowledge: Adequate Attention and Concentration: Inadequate Memory: Impaired Mood: Appropriate Affect: Appropriate Thought Process & Associations: Intact, Goal directed, Linear Thought Content: Appropriate Hallucination Type: None Delusion Type: None Suicidal Ideation: Yes (denies today) Suicidal Plan: No Suicidal Intention: No Homicidal Ideation: No Homicidal Plan: No Homicidal Intention: No Insight: Fair Judgment: Impulsive Results Vitals/IOs Vital Signs Date Time Temp Pulse Resp B/P (MAP) Pulse Ox O2 Delivery O2 Flow Rate FiO2 11/23/17 06:48 98.1 90 16 179/91 (120) 98 11/21/17 16:53 Room Air Intake and Output 11/23/17 11/23/17 11/24/17 08:00 16:00 00:00 Intake Total 240 ml Balance 240 ml Assessment & Plan Problem List: (1) Adjustment disorder with depressed mood ICD Codes: F43.21 - Adjustment disorder with depressed mood Assessment & Plan Patient at this time reports improvement of mood, tolerating meds well, denies any SI at this time. Continue current treatment, continue to monitor mood and behavior. Patient due to history of high lethality suicide attempt continues to be at high risk of self harm in the context of recent suicidal ideation, not currently on medication treatment, with multiple psychosocial stressors and would require continued titration of medication regimen to address current depression. Monitor mood and behavior, collateral pending. Discharge planning in progress. Justification for Cont. Inpt. At risk for further decompensation if at lower level of care Discharge Planning Discharge back to mother's residence once psychiatrically stable. Lopez Ralph MD Nov 23, 2017 16:14
[2017-11-23 18:40] VITALS: BP 137/63; PULSE 70; RESP 16; TEMP 97.8; O2SAT 98
[2017-11-23] MEDS: traZODone HCL 50 MG TAB PO SCH (21:59)
[2017-11-24] MEDS: LEVOTHYROXINE SODIUM 75 MCG TAB PO SCH (05:47)
[2017-11-24 05:51] VITALS: BP 103/56; PULSE 64; RESP 18; TEMP 97.3; O2SAT 95
[2017-11-24] MEDS: ESCITALOPRAM OXALATE 20 MG TAB PO SCH (09:45)
--- NOTE | 2017-11-24 13:47 | HHI.PYPN ---
Subjective Remarks Patient was seen and case discussed with nursing. Patient is bright and cheerful during the interview. She attributes her suicidal ideations acute intoxication. CIWA 0 today. She is tolerating her medications well. She denies suicidal homicidal ideation intent or plan. Mental Status Examination Appearance: Appropriate Consciousness: Alert Orientation: x4 Motor Activity: Normal gait Speech: Unremarkable Language: Adequate Fund of Knowledge: Adequate Attention and Concentration: Inadequate Memory: Impaired Mood: Appropriate Affect: Appropriate Thought Process & Associations: Intact, Goal directed, Linear Thought Content: Appropriate Hallucination Type: None Delusion Type: None Suicidal Ideation: No Suicidal Plan: No Suicidal Intention: No Homicidal Ideation: No Homicidal Plan: No Homicidal Intention: No Insight: Fair Judgment: Impulsive Results Vitals/IOs Vital Signs Date Time Temp Pulse Resp B/P (MAP) Pulse Ox O2 Delivery O2 Flow Rate FiO2 11/24/17 05:51 97.3 64 18 103/56 (72) 95 11/21/17 16:53 Room Air Assessment & Plan Problem List: (1) Adjustment disorder with depressed mood ICD Codes: F43.21 - Adjustment disorder with depressed mood Assessment & Plan Continue current treatment plan Justification for Cont. Inpt. Patient would decompensate in a less restrictive setting Kaiser Maurice DO Nov 24, 2017 13:47
[2017-11-24 16:28] VITALS: BP 115/65; PULSE 61; RESP 17; TEMP 97.7; O2SAT 98
[2017-11-24] MEDS: traZODone HCL 50 MG TAB PO SCH (21:46)
[2017-11-25] MEDS: LEVOTHYROXINE SODIUM 75 MCG TAB PO SCH (06:33)
[2017-11-25] MEDS: ESCITALOPRAM OXALATE 20 MG TAB PO SCH (08:53)
--- NOTE | 2017-11-25 12:44 | HHI.PYPN ---
Subjective Remarks Patient was seen and case discussed with nursing. Patient is bright and cheerful during the interview. Has been having productive visits with her mom. Spending the day reading quietly in her room. CIWA is 0. Mood is "great." Eating and sleeping well. Denies suicidal homicidal ideation intent or plan Mental Status Examination Appearance: Appropriate Consciousness: Alert Orientation: x4 Motor Activity: Normal gait Speech: Unremarkable Language: Adequate Fund of Knowledge: Adequate Attention and Concentration: Adequate Memory: Impaired Mood: Appropriate Affect: Appropriate Thought Process & Associations: Intact, Goal directed, Linear Thought Content: Appropriate Hallucination Type: None Delusion Type: None Suicidal Ideation: No Suicidal Plan: No Suicidal Intention: No Homicidal Ideation: No Homicidal Plan: No Homicidal Intention: No Insight: Fair Judgment: Impulsive Results Vitals/IOs Vital Signs Date Time Temp Pulse Resp B/P (MAP) Pulse Ox O2 Delivery O2 Flow Rate FiO2 11/24/17 16:28 97.7 61 17 115/65 (82) 98 11/21/17 16:53 Room Air Assessment & Plan Problem List: (1) Adjustment disorder with depressed mood ICD Codes: F43.21 - Adjustment disorder with depressed mood Assessment & Plan Continue current treatment plan Justification for Cont. Inpt. Patient will decompensate in a less restrictive setting Kaiser Maurice DO Nov 25, 2017 12:44
[2017-11-25 16:13] VITALS: BP 116/81; PULSE 62; RESP 18; TEMP 97.3; O2SAT 98
[2017-11-25] MEDS: traZODone HCL 50 MG TAB PO SCH (21:43)
[2017-11-26] MEDS: LEVOTHYROXINE SODIUM 75 MCG TAB PO SCH (06:13)
[2017-11-26 06:16] VITALS: BP 114/58; PULSE 57; RESP 17; TEMP 98.7; O2SAT 100
[2017-11-26] MEDS: ESCITALOPRAM OXALATE 20 MG TAB PO SCH (09:08)
[2017-11-26] MEDS ORDERED: ESCI20TA PO (13:45)
[2017-11-26] MEDS ORDERED: TRAZ50TA12 PO (13:45)
[2017-11-26] MEDS ORDERED: LEVO.075 PO (13:45)
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
--- NOTE | 2017-11-26 15:15 | PD.TTN ---
Patient Problems 1. Discharge planning 2. Medication compliance 3. Knowledge deficit 4. Lack of coping skills Progress Toward Goals Provider Present: Dr. Genevieve Ralph Provider Input: Patient will be discharge today and will have appropriate follow up care upon discharge. Psychiatric Counselors Present: TERRY John Psych Therapist Input: Patient is cooperative and compliant with care. Group Spec/RT/OT/MERCEDES Present: Immanuel Browne OT Group Spec/RT/OT/MERCEDES Input: Patient does attend group and is appropriate. Shruti Manriquez Nov 26, 2017 15:15
== END 2017-11-26 15:50 | disposition home or self-care (01) | DRG 881 ==
LOC: NEPD 01:34 → NEDA 15:34 → H260 17:30
PROVIDERS: ADMIT Student in an Organized Health Care Education/Training Program; ATTEND Student in an Organized Health Care Education/Training Program
DX: F43.21 Adjustment disorder with depressed mood (principal); R45.851 Suicidal ideations; Z91.128 Patient's intentional underdosing of medication regimen for other reason; F10.120 Alcohol abuse with intoxication, uncomplicated; Y90.8 Blood alcohol level of 240 mg/100 ml or more; G89.29 Other chronic pain; M54.9 Dorsalgia, unspecified; E03.9 Hypothyroidism, unspecified; E78.00 Pure hypercholesterolemia, unspecified; F41.9 Anxiety disorder, unspecified; F17.210 Nicotine dependence, cigarettes, uncomplicated; T38.1X6A Underdosing of thyroid hormones and substitutes, initial encounter; M19.90 Unspecified osteoarthritis, unspecified site; G47.9 Sleep disorder, unspecified; R94.6 Abnormal results of thyroid function studies; Z81.8 Family history of other mental and behavioral disorders; Z91.5 Personal history of self-harm
CPT/HCPCS: 80053; 80061; 80307; 81001; 82306; 82607; 83036; 84439; 84443; 84703; 85007; 85025; 85027; 93005; 96372; J1630; J2060